=== PATIENT | male | born 1955 | race Caucasian/White ===

== ENCOUNTER 2017-08-23 15:48 | Emergency (ER) | payer BC, OTHER, SELFPAY | END 2017-08-23 19:10 | disposition home or self-care (01) | PROVIDERS: Emergency Provider Emergency Medicine; Family Provider Internal Medicine; Visit Provider Emergency Medicine | DX: M50.13 Cervical disc disorder with radiculopathy, cervicothoracic region (principal); Z87.891 Personal history of nicotine dependence | CPT/HCPCS: 71020; 72050; 73030; 80053; 82550; 82553; 84484; 85025; 93005; 93041; 99284 ==

== ENCOUNTER → 2018-01-31 09:29 | Outpatient (CLI) | payer BC, OTHER, SELFPAY | PROVIDERS: PCP Internal Medicine; Visit Provider Nurse Practitioner Family | DX: Z02.4 Encounter for examination for driving license (principal) ==

== ENCOUNTER → 2018-02-19 15:14 | Outpatient (POV) | payer BC, OTHER, SELFPAY ==
[2018-02-19 15:36] VITALS: BP 146/94; PULSE 70; RESP 18; O2SAT 96
--- NOTE | 2018-02-19 15:56 | HMH.PMCON ---
Assessment and Plan (1) Cervical pain (neck) Current visit: Yes Status: Chronic Category: Medical Code(s): M54.2 - Cervicalgia - Assessment and plan all Dx Assessment and Plan for all problems:: We will schedule a cervical MRI to discern pathology. Patient will return after his MRI and we will result. This time we will be able to make a plan of care. This note was dictated using voice recognition software and may contain errors or omissions HPI - Data of Consult Consult date: 02/19/18 Requesting Physician: Consuelo Barnes APRN Primary Care Provider: Wilbur Davalos Family Provider: Wilbur Davalos - Consult Narrative Reason for consult: Neck pain History of present illness: Mr. Maki is a 63 year old male presents today in regards to his neck pain. Patient states that about 3 months ago he began experiencing an intermittent pain that shoots from the lower part of his neck up onto the top of his head midline of the spine. Patient rates his pain a 1 out of 10 today. He states that is not too bad at this point. Patient has had no new onset of weakness or numbness and tingling in his extremities. Patient's pupillary responses are good. Patient states he has had no additional headaches that he can recall. Patient has not had any kind of imaging done on his neck. I believe this would be beneficial. Patient would like to determine the pathology of his pain. Patient states that positioning and lidocaine decreases pain will all movement and activity make it worse. Patient is trying to do home stretching exercises. CC: Consuelo Barnes APRN [facility] History I have reviewed the patient's past medical history: Yes Medical History: Reports:: Cancer (renal) Denies:: Diabetes Mellitus Type 1, Diabetes Mellitus Type 2, MRSA Other Surgeries: Yes: Cholecystectomy, Hernia Repair, Other (rib resection, nephrectomy) Amputation: No Fractures: No - *Social History Alcohol Intake: never Occupational Status: employed Household Members: spouse - Psychiatric History Expresses thoughts of harming self/others: None Suicide Plan Description: No Plan Review of Systems - Review of Systems ROS General: no recent weight change, no fever, no sleep disturbances Respiratory: no cough, no shortness of air, no recurring pulmonary infections Cardiovascular/Peripheral Vascular: No chest pain, No palpitations, no edema, no shortness of breath. Gastrointestinal: no incontinence, normal bowel movements reported Genitourinary: no incontinence Musculoskeletal: Neck shayy Psychiatric: normal mood/ affect Neurological: [denies weakness in extremities], [denies balance issues] Meds Home Medications Medication Instructions Recorded Confirmed Type Diclofenac Sodium [Diclofenac Sod 100 gm TP QID 02/19/18 02/19/18 History 100gm Topical Gel] Lidocaine [Lidocaine 5% ointment 1 gm TOPICAL QIDP PRN 02/19/18 02/19/18 History 35gm tube] Allergies Allergy/AdvReac Type Severity Reaction Status Date / Time No Known Allergies Allergy Verified 02/19/18 15:41 Objective Vital signs: Pulse Resp BP Pulse Ox 70 18 146/94 96 02/19/18 15:36 02/19/18 15:36 02/19/18 15:36 02/19/18 15:36 Narrative: Physical Exam General: Alert and oriented x3, no acute distress, pleasant and cooperative, [on room air] Lungs: Resps E/U, Symmetrical chest expansion, Eyes: PERRL Musculoskeletal: Flexion and extension of cervical spine somewhat guarded secondary to pain, deep tendon reflexes normal, strength in upper and lower extremities [5/5], normal gait noted Neurological: speech clear, right of way buyer equal, no gross sensory deficits Opioid Risk Tool - Opioid Risk Tool-Male Family hx alcohol abuse: Y Family hx illegal drugs: N Family hx rx drug abuse: N Personal hx alcohol abuse: N Personal hx illegal drugs: N Personal hx rx drug abuse: N Age: 45+ Hx of sexual abuse: N Mental health issues-
--- NOTE | 2018-02-19 15:59 | P.CONS_ITS ---
Assessment and Plan (1) Cervical pain (neck) Current visit: Yes Status: Chronic Category: Medical Code(s): M54.2 - Cervicalgia - Assessment and plan all Dx Assessment and Plan for all problems:: We will schedule a cervical MRI to discern pathology. Patient will return after his MRI and we will result. This time we will be able to make a plan of care. This note was dictated using voice recognition software and may contain errors or omissions HPI - Data of Consult Consult date: 02/19/18 Requesting Physician: Consuelo Barnes APRN Primary Care Provider: Wilbur Davalos Family Provider: Wilbur Davalos - Consult Narrative Reason for consult: Neck pain History of present illness: Mr. Maki is a 63 year old male presents today in regards to his neck pain. Patient states that about 3 months ago he began experiencing an intermittent pain that shoots from the lower part of his neck up onto the top of his head midline of the spine. Patient rates his pain a 1 out of 10 today. He states that is not too bad at this point. Patient has had no new onset of weakness or numbness and tingling in his extremities. Patient's pupillary responses are good. Patient states he has had no additional headaches that he can recall. Patient has not had any kind of imaging done on his neck. I believe this would be beneficial. Patient would like to determine the pathology of his pain. Patient states that positioning and lidocaine decreases pain will all movement and activity make it worse. Patient is trying to do home stretching exercises. CC: Consuelo Barnes APRN [facility] History I have reviewed the patient's past medical history: Yes Medical History: Reports:: Cancer (renal) Denies:: Diabetes Mellitus Type 1, Diabetes Mellitus Type 2, MRSA Other Surgeries: Yes: Cholecystectomy, Hernia Repair, Other (rib resection, nephrectomy) Amputation: No Fractures: No - *Social History Alcohol Intake: never Occupational Status: employed Household Members: spouse - Psychiatric History Expresses thoughts of harming self/others: None Suicide Plan Description: No Plan Review of Systems - Review of Systems ROS General: no recent weight change, no fever, no sleep disturbances Respiratory: no cough, no shortness of air, no recurring pulmonary infections Cardiovascular/Peripheral Vascular: No chest pain, No palpitations, no edema, no shortness of breath. Gastrointestinal: no incontinence, normal bowel movements reported Genitourinary: no incontinence Musculoskeletal: Neck shayy Psychiatric: normal mood/ affect Neurological: [denies weakness in extremities], [denies balance issues] Meds Home Medications Medication Instructions Recorded Confirmed Type Diclofenac Sodium [Diclofenac Sod 100 gm TP QID 02/19/18 02/19/18 History 100gm Topical Gel] Lidocaine [Lidocaine 5% ointment 1 gm TOPICAL QIDP PRN 02/19/18 02/19/18 History 35gm tube] Allergies Allergy/AdvReac Type Severity Reaction Status Date / Time No Known Allergies Allergy Verified 02/19/18 15:41 Objective Vital signs: Pulse Resp BP Pulse Ox 70 18 146/94 96 02/19/18 15:36 02/19/18 15:36 02/19/18 15:36 02/19/18 15:36 Narrative: Physical Exam General: Alert and oriented x3, no acute distress, pleasant and cooperative, [ on room air] Lungs:
== END ==
PROVIDERS: Family Provider Internal Medicine; PCP Internal Medicine; Visit Provider Clinical Nurse Specialist Family Health
DX: M54.2 Cervicalgia (principal)
CPT/HCPCS: 99202

== ENCOUNTER → 2018-02-22 15:18 | Outpatient (CLI) | payer BC, OTHER, SELFPAY ==
--- NOTE | 2018-02-22 15:28 | MR_ITS ---
MR cervical spine wo con, MR 3-d myelogram/MRCP Ordering Physician: Francisco J Adam MD Patient Age: 63 years: Male HISTORY: ITS.REASON: NECK PAIN Neck pain 6 months, burning sensation from top of cervical spine extends up to the head. TECHNIQUE Sagittal STIR, T1, T2, axial T1 and T2. On 1.5T Siemens wide bore MRI. 3-D MR myelogram image set obtained & performed on MRI workstation. Additional sagittal thin section T2 weighted dataset obtained from this latter acquisition as well (---76 CPT) COMPARISON previous MRI C-spine from 2014. Also plain films 08/23/2017 FINDINGS . patient apparently has sleep apnea and apparently which yielded some motion during the exam; and thus the images do demonstrate some motion artifact which degrades image detail Cranial cervical junction appears normal. C2-C3: disc and cord normal C3/4. Degenerative disc space narrowing with some reactive endplate changes posteriorly. Subtle progressive degenerative listhesis seen at this level since 2014. Slight additional posterior ridging from C4. The disc/osteophyte features most evident at midline and slightly to the right, features do indent & flatten the anterior cervical cord & yield mild spinal stenosis at this level midline & slightly to the right.. Cervical canal 9 mm AP suggesting mild spinal stenosis. C4/5. Mild diffuse disc osteophyte features with slight additional central disc protrusion which appears to have developed since 2014. Disc osteophyte features abuts the cervical cord just midline & just to the left... Mild facet hypertrophy bilaterally. borderline/mild spinal stenosis with 9.5 mm AP dimension spinal canal. C5-C6. Mild disc space narrowing. Mild uncovertebral joint hypertrophy to the right slightly indents thecal sac right paracentral C6/7 broad-based disc/osteophyte features slightly indents anterior thecal sac midline and continuing to the left . C7/T1 1 small central disc protrusion only slightly indents thecal sac. T1/2 disc unremarkable. T2/3. Disc intact. T3/4. Only Partially imaged with today sagittal views but there very large large disc protrusion or feature here which indents the thecal sac anteriorly and requires further evaluation with a MRI T-spine. 3-D MRI myelogram image set shows the narrowing of thecal sac canal most evident at C3/4 level & less pronounced at C4/5. Facet hypertrophy most evident to the left. C4/5, followed by facet hypertrophy to the left at C 3/4 & C2/3 IMPRESSION. T3/4.*Only Partially imaged with today sagittal cervical spine images,-but. Very large disc herniation/extrusion here which markedly indents the thecal sac noted at T3/4 level,-. Warrants further evaluation with follow-up MRI T-spine There is some motion artifact which degrades resolution on today's study. . Moderate Cervical spondylosis again noted. Findings are similar to previous 2015 exam with only slight progression. .Mild spinal stenosis at this C3/4 & C4/5 . Individual levels briefly detailed below: At C3/4 slight additional degenerative listhesis with slight additional disc/ osteophyte features , which slightly which indenting the cervical cord at midline. Mild spinal stenosis C4/5 with spondylosis, disc/osteophyte features slightly more midline & to the left where they may may very slightly flatten the cord. . Borderline/mild spinal stenosis C6/7 broad-based disc/osteophytes features slight indent the thecal sac midline & to the left
== END ==
PROVIDERS: Family Provider Internal Medicine; PCP Internal Medicine; Visit Provider Anesthesiology
DX: M54.2 Cervicalgia (principal)
CPT/HCPCS: 72141; 76376

== ENCOUNTER → 2018-02-23 16:03 | Outpatient (CLI) | payer BC, OTHER, SELFPAY ==
--- NOTE | 2018-02-23 16:08 | XR_ITS ---
XR finger RT min 2V Ordering Physician: Wilbur Davalos Patient Age: 63 years: Male HISTORY: ITS.REASON: PAIN/SWELLING RT. THUMB AT MCP JOINT Pain and swelling right thumb at MCP joint TECHNIQUE: 3 views right thumb COMPARISON : None relevant FINDINGS Moderately pronounced degenerative arthritic changes at the first carpal-metacarpal joint. Narrowing, sclerosis subchondral cystic changes about this joint along with some mild hypertrophic features about its margins, particularly here at the ulnar/dorsal aspect of the trapezium . Less pronounced arthritic changes also seen at first MCP joint. Joint space narrowing minor sclerosis and possibly some minor subchondral cystic features at head of first metacarpal. Slight narrowing at the IP joint of thumb with slight sharpening the joint margins. . IMPRESSION Most evident and pronounced arthritic changes at first carpal metacarpal joint. Less pronounced pronounced arthritic features at first MCP joint. No fracture or acute findings otherwise
== END ==
PROVIDERS: PCP Internal Medicine; Visit Provider Internal Medicine
DX: M79.644 Pain in right finger(s) (principal)
CPT/HCPCS: 73140

== ENCOUNTER → 2018-03-05 15:13 | Outpatient (POV) | payer BC, OTHER, SELFPAY ==
[2018-03-05 15:29] VITALS: BP 149/99; PULSE 87; RESP 18; O2SAT 97; BMI 29.9
--- NOTE | 2018-03-06 08:39 | HMH.PAINSOAP ---
[facility] Pain Management SOAP Note Subjective:: Patient is a pleasant 63-year-old white male who presents today for follow-up after recent cervical MRI. Patient does have cervical degeneration along with spondylosis. He also has disc bulge as well. Patient states that his pain is about a 2 out of 10 today. Patient states it does get worse at times. He states his pain is midline and radiates up into his head. She is continuing to work. Patient had no new onset of weakness or numbness and tingling in the extremities. Patient would like to try a cervical epidural to see if this alleviates his pain comes. Note patient does have some thoracic pathology as well. Patient would like to focus on his neck pain at this time. ROS General: no recent weight change, no fever, no sleep disturbances Respiratory: no cough, no shortness of air, no recurring pulmonary infections Cardiovascular/Peripheral Vascular: No chest pain, No palpitations, no edema, no shortness of breath. Gastrointestinal: no incontinence, normal bowel movements reported Genitourinary: no incontinence Musculoskeletal: Neck pain Psychiatric: normal mood/ affect, Neurological: [denies weakness in extremities], [denies balance issues] Objective:: Physical Exam General: Alert and oriented x3, no acute distress, pleasant and cooperative, [on room air] Lungs: Resps E/U, Symmetrical chest expansion, Eyes: PERRL Musculoskeletal: Flexion and extension of cervical spine somewhat guarded secondary to pain, deep tendon reflexes normal, strength in upper and lower extremities [5/5], normal gait noted Neurological: speech clear, claims agent right of way equal, no gross sensory deficits Assessment:: Degenerative disc disease of the cervical spine Plan:: We will schedule C5-C6 cervical epidural steroid injection. We will see if that helps alleviate the patient's pain. I will follow-up with the patient after his injection. Patient's tried and failed stretching therapies along with medications and anti-inflammatories. Patient is not on any anticoagulation therapy. This note was dictated using voice recognition software and may contain errors or omissions
--- NOTE | 2018-03-06 08:42 | P.CONS_ITS ---
[facility] Pain Management SOAP Note Subjective:: Patient is a pleasant 63-year-old white male who presents today for follow-up after recent cervical MRI. Patient does have cervical degeneration along with spondylosis. He also has disc bulge as well. Patient states that his pain is about a 2 out of 10 today. Patient states it does get worse at times. He states his pain is midline and radiates up into his head. She is continuing to work. Patient had no new onset of weakness or numbness and tingling in the extremities. Patient would like to try a cervical epidural to see if this alleviates his pain comes. Note patient does have some thoracic pathology as well. Patient would like to focus on his neck pain at this time. ROS General: no recent weight change, no fever, no sleep disturbances Respiratory: no cough, no shortness of air, no recurring pulmonary infections Cardiovascular/Peripheral Vascular: No chest pain, No palpitations, no edema, no shortness of breath. Gastrointestinal: no incontinence, normal bowel movements reported Genitourinary: no incontinence Musculoskeletal: Neck pain Psychiatric: normal mood/ affect, Neurological: [denies weakness in extremities], [denies balance issues] Objective:: Physical Exam General: Alert and oriented x3, no acute distress, pleasant and cooperative, [ on room air] Lungs: Resps E/U, Symmetrical chest expansion, Eyes: PERRL Musculoskeletal: Flexion and extension of cervical spine somewhat guarded secondary to pain, deep tendon reflexes normal, strength in upper and lower extremities [5/5], normal gait noted Neurological: speech clear, muck miner equal, no gross sensory deficits Assessment:: Degenerative disc disease of the cervical spine Plan:: We will schedule C5-C6 cervical epidural steroid injection. We will see if that helps alleviate the patient's pain. I will follow-up with the patient after his injection. Patient's tried and failed stretching therapies along with medications and anti-inflammatories. Patient is not on any anticoagulation therapy. This note was dictated using voice recognition software and may contain errors or omissions
== END ==
PROVIDERS: Family Provider Internal Medicine; PCP Internal Medicine; Visit Provider Clinical Nurse Specialist Family Health
DX: M50.30 Other cervical disc degeneration, unspecified cervical region (principal)
CPT/HCPCS: 99212

== ENCOUNTER → 2018-04-23 09:37 | Outpatient (POV) | payer BC, OTHER, SELFPAY ==
[2018-04-23 09:52] VITALS: BP 167/93; PULSE 87; RESP 18; O2SAT 98; BMI 29.9
--- NOTE | 2018-04-23 10:03 | P.CONS_ITS ---
[facility] Pain Management SOAP Note Subjective:: Patient is a pleasant 63-year-old white male who we are treating for neck pain with cervical radicular symptoms. Patient status post one cervical epidural steroid injection at C5-C6. Patient's doing much better he rates his pain a 2 out of 10 today patient is unable to take anti-inflammatories due to his kidney. Patient states that the hot burning sensation is gone in his neck. He states that his pain does worsen when he is working. Patient's going to try Voltaren gel to see if this is beneficial. Patient has had been prescribed this previously. ROS General: no recent weight change, no fever, no sleep disturbances Respiratory: no cough, no shortness of air, no recurring pulmonary infections Cardiovascular/Peripheral Vascular: No chest pain, No palpitations, no edema, no shortness of breath. Gastrointestinal: no incontinence, normal bowel movements reported Genitourinary: no incontinence Musculoskeletal: Neck pain Psychiatric: normal mood/ affect Neurological: [denies weakness in extremities], [denies balance issues] Objective:: Physical Exam General: Alert and oriented x3, no acute distress, pleasant and cooperative, [ on room air] Lungs: Resps E/U, Symmetrical chest expansion, Eyes: PERRL Musculoskeletal: Flexion and extension of cervical spine somewhat guarded secondary to pain, deep tendon reflexes normal, strength in upper and lower extremities [5/5], normal gait noted Neurological: speech clear, carpet jack equal, no gross sensory deficits Assessment:: Degenerative disc disease of the cervical spinal cervical radiculopathy Plan:: Patient will follow up on an as-needed basis. Patient is uninterested in repeating this injection at this time due to his benefit at this point. Patient will give us a call if he is interested in moving forward with this in the future. Patient is going to try Voltaren gel to see if this is beneficial for his neck pain during work. This note was dictated using voice recognition software and may contain errors or omissions
== END ==
PROVIDERS: Family Provider Internal Medicine; PCP Internal Medicine; Visit Provider Clinical Nurse Specialist Family Health
DX: M50.10 Cervical disc disorder with radiculopathy, unspecified cervical region (principal); M54.13 Radiculopathy, cervicothoracic region
CPT/HCPCS: 99213

== ENCOUNTER → 2018-10-02 10:58 | Outpatient (CLI) | payer BC, OTHER, SELFPAY ==
--- NOTE | 2018-10-02 10:59 | CA_ITS ---
PROCEDURE: 2-D M-mode and color Doppler study INDICATIONS FOR THE TEST: Chest pain X COPD Heart Murmur Tobacco SmokingEX Palpitations Fatigue Syncope Edema Hypertension Diabetes Mellitus Rheumatic Fever SOB DOEXObesity Hyperlipidemia Family History HD PATIENT INFORMATION HEIGHT: 71 WEIGHT:224 GENDER: Male B/P:142/79 2-D/M-MODE INTERPRETATION: 2-D MEASUREMENTS OBSERVED VALUES IN CMS Right Ventricular Dimension (RVDd) 2.4 Interventricular Septum (Thickness)(IVsd) .9 Left Ventricular Internal Dimensions(LVIDd) 5.6 Left Ventricular Posterior Wall (Thickness)(LVPWd) .9 Aortic Root 3.7 Aortic Cusp Separation 1.8 Left Atrial Dimensions (LAD) 3.7 2D 1. Left Atrium is mildly enlarged, left ventricle is normal size, there is there is no concentric left ventricular hypertrophy, visually estimated ejection fraction 55% with no regional wall motion abnormality. 2. The right atrium and right ventricle are normal size and contractility. 3. The aortic valve is minimally thickened and fibrosed. 4. The mitral and tricuspid valve are grossly normal. 5. The pulmonic valve is poorly present. 6. No significant pericardial effusion noted. DOPPLER INTERROGATION: Doppler interrogation of the aortic, mitral and tricuspid valvular presence of mild mitral and tricuspid regurgitation, tricuspid regurgitation jet velocity is inadequate for calculation of the right ventricular systolic pressure, grade 1 diastolic dysfunction seen with tissue Doppler evidence of raised left atrial pressure. CONCLUSION: 1. Mildly enlarged left atrium, normal left ventricular size, preserved left ventricular systolic function, visually estimated ejection fraction 55% with no regional wall motion abnormality, grade 1 diastolic dysfunction seen with tissue Doppler evidence of raised left atrial pressure. 2. Mild mitral and tricuspid regurgitation 3. No significant pericardial effusion noted.
--- NOTE | 2018-10-02 11:27 | CT_ITS ---
CT heart w calcium score INDICATION: ITS.REASON: chest pain, dyspnea ORDERING PHYSICIAN: Nik Pandya MD PATIENT AGE: 63 years COMPARISON: None TECHNIQUE: Axial images are obtained without contrast. Sagittal and coronal reformatted images are reviewed as well. All CT scans at the facility use one or more dose reduction, viz: automated exposure control, ma/kV adjustment per patient size (including targeted exams where dose is matched to indication, i.e. head), or iterative reconstruction technique. FINDINGS: Coronary artery calcium score is 199 indicating moderate plaque burden with high cardiovascular disease risk. Images submitted demonstrates multiple hepatic cysts. There is a calcified granuloma in the right lung base. IMPRESSION: Coronary artery calcium score is 199 indicating moderate plaque burden with high cardiovascular disease risk
== END ==
PROVIDERS: PCP Internal Medicine; Visit Provider Internal Medicine Cardiovascular Disease
DX: R07.2 Precordial pain (principal); R06.09 Other forms of dyspnea; K21.9 Gastro-esophageal reflux disease without esophagitis; G47.33 Obstructive sleep apnea (adult) (pediatric); Z87.891 Personal history of nicotine dependence
CPT/HCPCS: 75571; 93017; 93306

== ENCOUNTER → 2018-10-09 08:16 | Outpatient (CLI) | payer BC, OTHER, SELFPAY ==
[2018-10-09 10:07] LABS: Alanine Aminotransferase 34 U/L (12-78); Albumin Level 3.8 gm/dL (3.4-5.0); Alkaline Phosphatase 93 U/L (46-116); Aspartate Amino Transferase 15 U/L (15-37); Bilirubin,Direct 0.2 mg/dL (0.0-0.2); Bilirubin,Indirect 0.5 mg/dL (0.0-0.9); Bilirubin,Total 0.7 mg/dL (0.2-1.0); Chol/HDL Ratio 3.2 (1-3.5); Cholesterol 126 mg/dL (140-200); HDL Cholesterol 39 mg/dL (27-67); LDL Cholesterol 61 mg/dL (0-130); Total Protein,Serum 6.8 gm/dL (6.4-8.2); Triglycerides 130 mg/dL (30-200); VLDL Cholesterol 26 mg/dL (0-40)
== END ==
PROVIDERS: Visit Provider Urology
DX: I20.9 Angina pectoris, unspecified (principal); K21.9 Gastro-esophageal reflux disease without esophagitis; R06.09 Other forms of dyspnea; R94.39 Abnormal result of other cardiovascular function study; G47.33 Obstructive sleep apnea (adult) (pediatric); Z87.891 Personal history of nicotine dependence
CPT/HCPCS: 36415; 80061; 80076

== ENCOUNTER → 2018-10-12 12:11 | Outpatient (CLI) | payer BC, OTHER, SELFPAY ==
[2018-10-12 12:22] LABS: Microscopic, Urine URINE MICROSCOPIC (MICROSCOPIC)
[2018-10-12 13:12] LABS: Appearance,Urine CLEAR (Clear); Bilirubin,Urine Negative (Negative); Blood, Urine Negative (Negative); Color,Urine YELLOW (Yellow); Glucose,Urine (UA) Negative (Negative); Ketones,Urine Negative (Negative); Leukocyte Esterase,Urine Negative (Negative); Nitrate,Urine Negative (Negative); PH,Urine 5.5 (5.0-8.5); Protein,Urine Negative (Negative); Urobilinogen,Urine 0.2 EU/dl (0.2)
[2018-10-12 13:23] LABS: Creatinine,Urine Random 104 mg/dL (20-320)
[2018-10-12 13:34] LABS: Bacteria,Urine Trace /lpf
[2018-10-12 13:57] LABS: Albumin Level 3.5 gm/dL (3.4-5.0); Anion Gap 15.2 mEq/L (5-15); Blood Urea Nitrogen 24 mg/dL (7-18); Calcium 8.5 mg/dL (8.5-10.1); Carbon Dioxide 23 mmol/L (21.0-32.0); Chloride 105 mmol/L (98-107); Creatinine,Serum 1.33 mg/dL (0.70-1.30); Estimated Glomerular Filt Rate 54 ml/min (>60); GFR (African American) 66 ML/MIN (>60); Glucose 86 mg/dL (74-106); Phosphorous 3.7 mg/dL (2.4-4.9); Potassium 4.2 mmoL/L (3.5-5.1); Sodium 139 mmol/L (136-145)
[2018-10-16 12:17] LABS: 1,25-Dihydroxy, Vitamin D-2 <10 pg/mL (.)
[2018-10-16 16:12] LABS: 1,25 Dihydroxy Vitamin D 37 pg/mL (.); 1,25-Dihydroxy, Vitamin D-3 35 pg/mL (.)
== END ==
PROVIDERS: Visit Provider Internal Medicine Nephrology
DX: N18.2 Chronic kidney disease, stage 2 (mild) (principal)
CPT/HCPCS: 36415; 80069; 81001; 82043; 82570; 82652

== ENCOUNTER → 2019-01-07 09:31 | Outpatient (CLI) | payer BC, OTHER, SELFPAY ==
--- NOTE | 2019-01-07 09:36 | CT_ITS ---
CT abdomen pelvis wo con CLINICAL INDICATION: Left lower abdominal pain ITS.REASON: LLQ PAIN, LT GROIN PAIN ORDERING PHYSICIAN: Wilbur Davalos PATIENT AGE: 63 years COMPARISON: 517 TECHNIQUE: Axial images obtained with sagittal and coronal reformats. All CT scans at the facility use one or more dose reduction, viz: automated exposure control, ma/kV adjustment per patient size (including targeted exams where dose is matched to indication, i.e. head), or iterative reconstruction technique. PROCEDURE: Oral Contrast: None IV Contrast: None . FINDINGS: Lower thorax: No acute finding There are numerous hepatic cysts as before. There is a small hiatal hernia. Postcholecystectomy change. Prior right nephrectomy. The spleen and left adrenal gland are unremarkable. Right adrenal gland not visualized and may be surgically absent. The pancreas have an unremarkable appearance. No intestinal obstruction or free air. No evidence of appendicitis or diverticulitis. No pelvic mass abnormal fluid collection or focal inflammatory change of the pelvis. No inguinal mass. There is some increased soft tissue density in the left canal which is stable compared to the previous exam. This is nonspecific. No acute bony findings. IMPRESSION: 1. Prior cholecystectomy and right nephrectomy. 2. Multiple hepatic cysts. 3. No acute finding
== END ==
PROVIDERS: PCP Internal Medicine; Visit Provider Internal Medicine
DX: R10.32 Left lower quadrant pain (principal)
CPT/HCPCS: 74176

== ENCOUNTER → 2019-01-21 09:18 | Outpatient (CLI) | payer SELFPAY | PROVIDERS: Visit Provider Nurse Practitioner Family | DX: Z02.4 Encounter for examination for driving license (principal) ==

== ENCOUNTER → 2019-03-05 09:15 | Outpatient (POV) | payer SELFPAY | PROVIDERS: Visit Provider Dermatology | DX: Z00.00 Encounter for general adult medical examination without abnormal findings (principal) ==

== ENCOUNTER → 2019-04-19 11:19 | Outpatient (CLI) | payer BC, OTHER, SELFPAY ==
--- NOTE | 2019-04-19 11:27 | XR_ITS ---
PROCEDURE: XR LUMBAR SPINE MIN 4V CLINICAL INDICATION: LUMBAGO WITH LT SCIATICA COMPARISON: LS5 LUMBAR SPINE 5 VIEWS from 11/12/2014 FINDINGS: There is degenerative disc disease from L2 to L4. There is mild retrolisthesis of L3 on L4 of 6 mm. Degenerate disc disease L3-L4. No fracture or dislocation. No lytic or blastic change. Incidental vascular calcifications and right upper quadrant surgical clips. IMPRESSION: Degenerative changes, no acute finding Dictated by: Joselo Salazar MD 04/19/2019 12:13 Signed by: <Electronically signed by Joselo Salazar MD in [place]> 04/19/2019 12:13
== END ==
PROVIDERS: PCP Internal Medicine; Visit Provider Internal Medicine
DX: M54.42 Lumbago with sciatica, left side (principal)
CPT/HCPCS: 72110

== ENCOUNTER 2019-05-09 15:30 | Outpatient (RCR) | payer BC, OTHER, SELFPAY | END 2019-05-09 15:35 | disposition home or self-care (01) | LOC: PT 15:30 | PROVIDERS: PCP Internal Medicine; Visit Provider Internal Medicine | DX: M54.42 Lumbago with sciatica, left side (principal) | CPT/HCPCS: 97010; 97014; 97033; 97035; 97110; 97140; 97163; G0283 ==

== ENCOUNTER → 2020-02-03 15:48 | Outpatient (CLI) | payer BC, MEDICARE, OTHER, SELFPAY ==
--- NOTE | 2020-02-03 15:57 | XR_ITS ---
PROCEDURE: XR LUMBAR SPINE MIN 4V CLINICAL INDICATION: LOW BACK PAIN COMPARISON: XR LUMBAR SPINE MIN 4V from 04/19/2019 FINDINGS: There is degenerative disc disease from L1-S1 most severe at L3-L4 with 7 mm retrolisthesis of L3. No acute fracture or dislocation. There is straightening of the lumbar lordosis. No lytic or blastic change. There are surgical clips in the right paraspinal region at the thoracolumbar junction. Mild facet arthritic changes are present at L5-S1 and there is some sclerosis along the inferior aspect of the SI joints. IMPRESSION: Degenerative changes as described above Dictated by: Joselo Salazar MD 02/04/2020 07:21 Electronically signed by Joselo Salazar MD in [place] 02/04/2020 07:21
== END ==
PROVIDERS: PCP Internal Medicine; Visit Provider Internal Medicine
DX: M54.5 Low back pain (principal)
CPT/HCPCS: 72110

== ENCOUNTER 2020-03-11 15:30 | Outpatient (RCR) | payer BC, MEDICARE, OTHER, SELFPAY | END 2020-03-11 15:35 | disposition home or self-care (01) | LOC: PT 15:30 | PROVIDERS: PCP Internal Medicine; Visit Provider Internal Medicine | DX: M54.5 Low back pain (principal) | CPT/HCPCS: 97010; 97012; 97014; 97035; 97110; 97163; G0283 ==

== ENCOUNTER → 2020-04-13 14:07 | Outpatient (CLI) | payer BC, MEDICARE, OTHER, SELFPAY ==
--- NOTE | 2020-04-13 14:10 | MR_ITS ---
PROCEDURE: MR LUMBAR SPINE WO CON CLINICAL INDICATION: LOW BACK PAIN LBP worse on LT side. Intermittent LT leg pain, numbness, and tingling. [id number]. NO TRAUMA. PRIOR X-RAY 02-03-20 COMPARISON: MR SPCERVWO MR cervical spine wo con from 02/22/2018 CR XR LUMBAR SPINE MIN 4V from 02/03/2020 TECHNIQUE: Standard multiplanar multiecho sequences are performed without contrast. 3-D MIP and myelographic images are also rendered and reviewed FINDINGS: There is normal alignment. There is a low lying cauda equina with a spinal cord ending at the L2-L3 level. The filum terminalis slightly thickened distally. L1-L2: There is a small central disc herniation with superior extrusion of the disc by approximately 16 mm. No impingement is evident. Mild degenerative disc disease is present at that level. Small lipoma or hemangioma at L1. L2-L3: Minimal bulging disc with mild facet and ligamentum hypertrophy. L3-L4: Minimal retrolisthesis of L3 of approximately 4 mm. Mild bulging disc with facet and ligamentum hypertrophy. There is mild foraminal narrowing on the right. L4-5: Minimal bulging disc with mild facet and ligamentum hypertrophy L5-S1: Degenerative disc disease with bulging disc with mild facet and ligamentum hypertrophy. There is mild left-sided foraminal narrowing at this level. IMPRESSION: 1. Low lying cauda equina at the L2-L3 level with a mildly thickened filum terminale 2. Small central disc herniation at L1-L2 with superior extrusion without impingement 3. Multilevel lumbar spondylosis with bulging disc and facet and ligamentum hypertrophy and degenerative disc disease. Please see above for detailed description Dictated b Joselo Salazar MD 04/15/2020 16:29 Joselo Salazar MD in [place] 04/15/2020 16:29
== END ==
PROVIDERS: PCP Internal Medicine; Visit Provider Internal Medicine
DX: M54.5 Low back pain (principal)
CPT/HCPCS: 72148; 76376

== ENCOUNTER → 2021-02-03 16:21 | Outpatient (CLI) | payer MEDICARE, OTHER, SELFPAY ==
[2021-02-03 17:02] LABS: Basophils # 0.1 K/mm3 (0-0.2); Basophils % 0.6 % (0.1-2.0); Eosinophils # 0.4 K/mm3 (0.0-0.4); Eosinophils % 3.7 % (0.1-12.0); Hematocrit 43.1 % (42.0-52.0); Hemoglobin 14.8 g/dL (14.1-18.0); Lymphocytes # 2.5 K/mm3 (0.7-4.5); Lymphocytes % 25.1 % (10-50); Mean Corpuscular HGB Conc 34.4 g/dL (31.8-35.4); Mean Corpuscular Hemoglobin 31.2 pg (27.0-31.2); Mean Corpuscular Volume 90.9 fl (80-94); Mean Platelet Volume 7.5 fl (7.4-10.4); Monocytes # 0.6 K/mm3 (0.1-1.0); Monocytes % 5.8 % (1.7-9.3); Neutrophils # 6.4 K/mm3 (1.8-7.8); Neutrophils % 64.8 % (37.0-80.0); Platelet Count 323 K/mm3 (142-424); Red Blood Count 4.74 M/mm3 (4.60-6.20); Red Cell Distribution Width 12.9 % (11.5-17.5); White Blood Count 9.9 K/mm3 (4.8-10.8)
[2021-02-03 18:30] LABS: Alanine Aminotransferase 26 U/L (12-78); Albumin Level 4.3 g/dl (3.5-5.0); Albumin/Globulin Ratio 1.7 (1.1-1.8); Alkaline Phosphatase 103 U/L (38-126); Aspartate Amino Transferase 30 U/L (17-59); Bilirubin,Total 0.5 mg/dl (0.2-1.3); Blood Urea Nitrogen 15 mg/dl (9-20); Carbon Dioxide 20 mmol/L (22.0-30.0); Chloride 107 mmol/L (98-107); Estimated Glomerular Filt Rate 67 ml/min (>60); GFR (African American) 81 ML/MIN (>60); Globulin 2.6 g/dL (1.3-3.2); Glucose 110 mg/dl (74-100); Sodium 138 mmol/L (136-145); Total Protein,Serum 6.9 g/dl (6.3-8.2)
== END ==
PROVIDERS: Visit Provider Internal Medicine
DX: I10 Essential (primary) hypertension (principal); L60.2 Onychogryphosis
CPT/HCPCS: 80053; 85025

== ENCOUNTER → 2021-03-23 15:46 | Outpatient (CLI) | payer MEDICARE, OTHER, SELFPAY ==
[2021-03-23 15:54] LABS: Basophils # 0.1 K/mm3 (0-0.2); Basophils % 0.9 % (0.1-2.0); Eosinophils # 0.3 K/mm3 (0.0-0.4); Eosinophils % 2.9 % (0.1-12.0); Hematocrit 43.6 % (42.0-52.0); Hemoglobin 14.8 g/dL (14.1-18.0); Lymphocytes # 2.6 K/mm3 (0.7-4.5); Lymphocytes % 28.3 % (10-50); Mean Corpuscular Hemoglobin 30.7 pg (27.0-31.2); Mean Corpuscular Volume 90.2 fl (80-94); Mean Platelet Volume 7.2 fl (7.4-10.4); Monocytes # 0.4 K/mm3 (0.1-1.0); Monocytes % 4.7 % (1.7-9.3); Neutrophils # 5.7 K/mm3 (1.8-7.8); Neutrophils % 63.2 % (37.0-80.0); Platelet Count 280 K/mm3 (142-424); Red Blood Count 4.83 M/mm3 (4.60-6.20); Red Cell Distribution Width 13.1 % (11.5-17.5); White Blood Count 9.1 K/mm3 (4.8-10.8)
[2021-03-23 16:14] LABS: Alanine Aminotransferase 35 U/L (12-78)
== END ==
PROVIDERS: Visit Provider Internal Medicine
DX: L60.2 Onychogryphosis (principal); Z79.899 Other long term (current) drug therapy
CPT/HCPCS: 84460; 85025

== ENCOUNTER 2021-05-29 14:49 | Emergency (ER) | payer MEDICARE, OTHER, SELFPAY ==
[2021-05-29 15:30] VITALS: BP 119/81; PULSE 81; RESP 20; TEMP 37.6; O2SAT 98; BMI 32.2
--- NOTE | 2021-05-29 15:52 | HMH.EDUTC ---
[facility] [place] Disposition Clinical Impression: Sinusitis Disposition: Home, Self-Care Condition on Discharge: Good Instructions: DI for Sinusitis Additional Instructions: You have been tested for COVID19. Please isolate yourself as if you are positive until test results received. Prescriptions: Amoxicillin/Potassium Clav [Augmentin 875-125 Tablet] 1 tab PO Q12H 10 Days #20 tab Transmission Status: Pending to [facility] Fluticasone Propionate [Flonase 50mcg nasal spray 16gm] 1 spr NS DAILY 30 Days #1 ml Transmission Status: Pending to [facility] predniSONE [Prednisone 20mg Tab] 20 mg PO BID 5 Days #10 tab Transmission Status: Pending to [facility] Referrals: Wilbur Davalos [Primary Care Provider] - Time of Disposition: 16:02 Medical Decision Making - Felipe Inquiry Pt receiving controlled substance: No Vital Signs: 05/29/21 15:30 Temperature 99.6 F Temperature Source Oral Pulse Rate [Right Brachial] 81 Respiratory Rate 20 Blood Pressure [Right Arm] 119/81 Blood Pressure Mean [Right Arm] 93 Blood Pressure Source [Right Arm] Automatic Cuff Blood Pressure Position [Right Arm] Sitting 02 Sat by Pulse Oximetry 98 Oxygen Delivery Method Room Air [facility] [place] HPI - General Stated complaint: cough, SOA, congestion Time Seen by Provider: 05/29/21 15:52 Mode of Arrival: Ambulatory Source of Information: Patient Limitations: No Limitations Description of Symptoms (Recalled from Triage Doc. by RN): PATIENT C/O SINUS DRAINAGE (X 1 WEEK), COUGH, BODY ACHES, AND FEVER HEENT Symptoms (Recalled from RN notes): Yes Resp Symptoms (Recalled from RN notes): Yes Skin Symptoms (Recalled from RN notes): No MS Symptoms (Recalled from RN notes): No Functional Status (Recalled from RN notes): WNL - History of Present Illness Provider Complaint: Patient has had crackling in right ear and sinus drainage X 1 week. Last night started having body aches, chest tightness, chills. Possible fever. Has had loose stools. No vomiting. No loss of taste or smell. No known exposures to COVID19. He has been vacccinated. Onset (ago): day(s) (1) Relieving factors: none Exacerbating factors: none Associated symptoms: fever/chills, malaise Treatments prior to arrival: none - Related Data Home Medications Medication Instructions Recorded Confirmed Esomeprazole Magnesium [Nexium] 20 mg PO DAILY 09/26/18 07/31/20 Previous Rx's Medication Instructions Recorded atorvastatin 10 mg tablet 10 mg PO DAILY #90 tab 12/03/18 bisoprolol fumarate 5 mg tablet 2.5 mg PO DAILY #30 tab 04/30/19 Amoxicillin/Potassium Clav 1 tab PO Q12H 10 Days #20 tab 05/29/21 [Augmentin 875-125 Tablet] Fluticasone Propionate [Flonase 1 spr NS DAILY 30 Days #1 ml 05/29/21 50mcg nasal spray 16gm] predniSONE [Prednisone 20mg 20 mg PO BID 5 Days #10 tab 05/29/21 Tab] Allergies Allergy/AdvReac Type Severity Reaction Status Date / Time Iodinated Contrast Media AdvReac Severe Verified 07/31/20 15:29 [Iodinated Contrast Media - Oral and] Gadolinium-Containing AdvReac Intermediate Verified 07/31/20 15:29 Contrast Medi - Worker's Comp Is this a Worker's Comp case?: No [facility] History - Hepatitis A Screen Drug use history?: No High risk sexual behaviors?: No History of sexually transmitted infection?: No Currently employed?: No Childcare worker?: No Do you have indoor plumbing?: Yes Do you have electricity?: Yes Attestation statement:: This patient has been screened for Hepatitis A risk factors. I have reviewed the patient's past medical history: Yes Medical History: Reports:: Cancer, Gastroesophageal Reflux Disease(GERD), Hyperlipidemia, Hypertension, Renal Disease Denies:: Diabetes Mellitus Type 1, Diabetes Mellitus Type 2, Internal Pacemaker, Lung Disease, MRSA, Seizures Other Medical History: Denies: Blood Transfusion Reaction Laterality Cases: Left: Arthroscopy Knee, Bilateral: Tonsillectomy [facility] [place]
[2021-05-29 16:02] VITALS: BP 119/81; PULSE 81; RESP 20; TEMP 37.6; O2SAT 98
== END 2021-05-29 16:09 | disposition home or self-care (01) ==
PROVIDERS: Emergency Provider Physician Assistant; PCP Internal Medicine
DX: J01.90 Acute sinusitis, unspecified (principal); U07.1 COVID-19; K21.9 Gastro-esophageal reflux disease without esophagitis; E78.5 Hyperlipidemia, unspecified; I10 Essential (primary) hypertension; Z87.891 Personal history of nicotine dependence
CPT/HCPCS: 99202; C9803; G0463; U0003; U0005

== ENCOUNTER 2021-06-07 12:12 | Emergency (ER) | payer MEDICARE, OTHER, SELFPAY ==
[2021-06-07] VITALS (14 sets, daily range): BP systolic 112–137; BP diastolic 63–79; PULSE 72–90; RESP 16–20; TEMP 37.3; O2SAT 92–97; BMI 32.1
--- NOTE | 2021-06-07 12:18 | XR_ITS ---
PROCEDURE: XR CHEST PORTABLE CLINICAL HISTORY: sob COMPARISON: CR CXR CHEST(2 VIEWS-NOT PORTABLE) from 08/23/2017 CR CXR2V XR chest 2V from 09/26/2018 FINDINGS: The cardiomediastinal silhouette and pulmonary vascularity are within normal limits. Patchy infiltrate is present in the mid and lower lung zones bilaterally. Findings are consistent with Covid19 pneumonia. There may be a small left effusion. No acute bony abnormalities. IMPRESSION: Bilateral pneumonia Dictated by: Joselo Salazar MD 06/07/2021 13:42 Joeslo Salazar MD in [place] 06/07/2021 13:42
[2021-06-07 12:48] LABS: Chloride 104 mmol/L (98-107)
[2021-06-07 12:49] LABS: Basophils # 0.2 K/mm3 (0-0.2); Basophils % 1.5 % (0.1-2.0); Eosinophils # 0.1 K/mm3 (0.0-0.4); Eosinophils % 1.1 % (0.1-12.0); Hematocrit 46.7 % (42.0-52.0); Hemoglobin 15.6 g/dL (14.1-18.0); Lymphocytes # 1.9 K/mm3 (0.7-4.5); Lymphocytes % 15.5 % (10-50); Mean Corpuscular HGB Conc 33.4 g/dL (31.8-35.4); Mean Corpuscular Hemoglobin 31.4 pg (27.0-31.2); Mean Corpuscular Volume 93.8 fl (80-94); Mean Platelet Volume 7.3 fl (7.4-10.4); Monocytes # 0.9 K/mm3 (0.1-1.0); Neutrophils # 9.1 K/mm3 (1.8-7.8); Neutrophils % 74.8 % (37.0-80.0); Platelet Count 417 K/mm3 (142-424); Potassium 3.6 mmoL/L (3.5-5.1); Red Blood Count 4.98 M/mm3 (4.60-6.20); Red Cell Distribution Width 12.8 % (11.5-17.5); Sodium 136 mmol/L (136-145); White Blood Count 12.1 K/mm3 (4.8-10.8)
[2021-06-07 12:51] LABS: Alanine Aminotransferase 45 U/L (12-78); Alkaline Phosphatase 72 U/L (38-126); Aspartate Amino Transferase 31 U/L (17-59); Bilirubin,Total 0.6 mg/dl (0.2-1.3); Blood Urea Nitrogen 13 mg/dl (9-20); Creatinine Clearance Estimated 107 mL/min (50-200); Estimated Glomerular Filt Rate 84 ml/min (>60); GFR (African American) 102 ML/MIN (>60)
[2021-06-07 12:52] LABS: Albumin Level 3.5 g/dl (3.5-5.0); Albumin/Globulin Ratio 1.1 (1.1-1.8); Anion Gap 11.6 mEq/L (5-15); Calcium 8.7 mg/dl (8.4-10.2); Carbon Dioxide 24 mmol/L (22.0-30.0); Globulin 3.3 g/dL (1.3-3.2); Glucose 112 mg/dl (74-100); Total Protein,Serum 6.8 g/dl (6.3-8.2)
[2021-06-07 15:15] LABS: Microscopic, Urine URINE MICROSCOPIC (MICROSCOPIC)
[2021-06-07 15:16] LABS: Appearance,Urine SL CLOUDY (Clear); Bilirubin,Urine Negative (Negative); Blood, Urine Negative (Negative); Color,Urine YELLOW (Yellow); Glucose,Urine (UA) Negative (Negative); Ketones,Urine Negative (Negative); Leukocyte Esterase,Urine Negative (Negative); Nitrate,Urine Negative (Negative); Protein,Urine Negative (Negative); Specific Gravity, Urine 1.025 (1.005-1.030); Urobilinogen,Urine 0.2 EU/dl (0.2)
[2021-06-07 15:27] LABS: Bacteria,Urine Trace /lpf
--- NOTE | 2021-06-07 16:44 | HMH.EDGENADL ---
ED Disposition Clinical Impression: Pneumonia due to COVID-19 virus, COVID-19 Disposition: Home, Self-Care Condition on Discharge: Fair Additional Instructions: Return the emergency department for worsening shortness of breath, chest pain. Stay well-hydrated. Follow-up with your PCP tomorrow. Referrals: Wilbur Davalos [Primary Care Provider] - (tomorrow) Time of Disposition: 16:48 - Critical Care Critical Care Time: No Attestation: On 06/07/21, the high probability of a clinically significant, sudden or life threatening deterioration of the following system(s) required my full and direct attention, intervention and personal management. The time I documented below is in addition to time spent performing reported procedures but includes the following listed in this critical care notation. Medical Decision Making - Medical Records Medical records reviewed: Yes: I reviewed the patient's medical records. - Felipe Inquiry Pt receiving controlled substance: No Vital Signs: 06/07/21 12:13 06/07/21 12:30 06/07/21 13:00 Temperature 99.1 F Temperature Source Oral Pulse Rate 78 80 Pulse Rate [Right Radial] 82 Respiratory Rate 16 Blood Pressure 124/74 121/75 Blood Pressure [Right Arm] 128/74 Blood Pressure Mean 85 95 Blood Pressure Mean [Right Arm] 92 Blood Pressure Source [Right Arm] Automatic Cuff Blood Pressure Position [Right Arm] Sitting 02 Sat by Pulse Oximetry 92 L 94 L 94 L Oxygen Delivery Method Room Air 06/07/21 13:30 06/07/21 14:00 06/07/21 14:30 Temperature Temperature Source Pulse Rate 78 84 Pulse Rate [Right Radial] Respiratory Rate 16 16 16 Blood Pressure 112/77 112/63 120/69 Blood Pressure [Right Arm] Blood Pressure Mean 86 77 86 Blood Pressure Mean [Right Arm] Blood Pressure Source [Right Arm] Blood Pressure Position [Right Arm] 02 Sat by Pulse Oximetry 94 L Oxygen Delivery Method 06/07/21 15:00 Temperature Temperature Source Pulse Rate 81 Pulse Rate [Right Radial] Respiratory Rate 16 Blood Pressure 122/76 Blood Pressure [Right Arm] Blood Pressure Mean 84 Blood Pressure Mean [Right Arm] Blood Pressure Source [Right Arm] Blood Pressure Position [Right Arm] 02 Sat by Pulse Oximetry 94 L Oxygen Delivery Method - Lab Data Lab results reviewed: Yes: I reviewed the patient's lab results. Lab Results 06/07/21 12:25: WBC 12.1 H, RBC 4.98, Hgb 15.6, Hct 46.7, MCV 93.8, MCH 31.4 H, MCHC 33.4, RDW 12.8, Plt Count 417, MPV 7.3 L, Neut % (Auto) 74.8, Lymph % (Auto) 15.5, Hopkins % (Auto) 7.0, Eos % (Auto) 1.1, Baso % (Auto) 1.5, Neut # (Auto) 9.1 H, Lymph # (Auto) 1.9, Hopkins # (Auto) 0.9, Eos # (Auto) 0.1, Baso # (Auto) 0.2 06/07/21 12:25: Sodium 136, Potassium 3.6, Chloride 104, Carbon Dioxide 24, Anion Gap 11.6, BUN 13, Creatinine 0.90, Estimated Creat Clear 107, Estimated GFR 84, Est GFR ( Amer) 102, Glucose 112 H, Calcium 8.7, Total Bilirubin 0.6, AST 31, ALT 45, Alkaline Phosphatase 72, Total Protein 6.8, Albumin 3.5, Globulin 3.3 H, Albumin/Globulin Ratio 1.1 06/07/21 15:00: Urine Color Yellow, Urine Appearance Sl cloudy, Urine pH 6.0, Ur Specific Warren 1.025, Urine Protein Negative, Urine Glucose (UA) Negative, Urine Ketones Negative, Urine Blood Negative, Urine Nitrate Negative, Urine Bilirubin Negative, Urine Urobilinogen 0.2, Ur Leukocyte Esterase Negative, Urine RBC 3-5, Urine WBC 3-5, Ur Squamous Epith Cells 3-5, Urine Bacteria Trace Result diagrams: 06/07/21 12:25 06/07/21 12:25 Orders (Tests/Meds): ED MEDICATIONS Generic Name Dose Route Start Last Admin Trade Name Freq PRN Reason Stop Dose Admin Azithromycin 500 mg/ Sodium 250 mls @ 250 mls/hr 06/07/21 14:00 06/07/21 14:47 Chloride IV 06/21/21 13:59 250 mls/hr Q24H JUMANA Administration Ceftriaxone Sodium 1 gm/ 50 mls @ 100 mls/hr 06/07/21 14:00 06/07/21 14:07 Sodium Chloride IV 06/21/21 13:59 100 mls/hr Q24H JUMANA Administration Di
== END 2021-06-07 18:10 | disposition home or self-care (01) ==
PROVIDERS: Emergency Provider Family Medicine; PCP Internal Medicine
DX: U07.1 COVID-19 (principal); J12.82 Pneumonia due to coronavirus disease 2019; K21.9 Gastro-esophageal reflux disease without esophagitis; I10 Essential (primary) hypertension; E78.5 Hyperlipidemia, unspecified; Z87.891 Personal history of nicotine dependence; Z79.899 Other long term (current) drug therapy
CPT/HCPCS: 71045; 80053; 81001; 85025; 96365; 96367; 96375; 99283; J0456

== ENCOUNTER → 2022-01-17 08:13 | Outpatient (CLI) | payer MEDICARE, OTHER, SELFPAY ==
[2022-01-17 09:49] LABS: Blood Urea Nitrogen 17 mg/dl (9-20); Estimated Glomerular Filt Rate 67 ml/min (>60); GFR (African American) 81 ML/MIN (>60)
== END ==
PROVIDERS: PCP Internal Medicine; Visit Provider Internal Medicine
DX: Z01.812 Encounter for preprocedural laboratory examination (principal)
CPT/HCPCS: 36415; 82565; 84520

== ENCOUNTER → 2022-01-18 13:31 | Outpatient (CLI) | payer MEDICARE, OTHER, SELFPAY | PROVIDERS: PCP Internal Medicine; Visit Provider Internal Medicine | DX: R06.09 Other forms of dyspnea (principal) ==

== ENCOUNTER → 2022-01-19 08:34 | Outpatient (CLI) | payer MEDICARE, OTHER, SELFPAY ==
--- NOTE | 2022-01-19 08:38 | CT_ITS ---
FINAL REPORT CLINICAL HISTORY: RT PLEURISY,SOA,H/O RENAL CA,COVID 19 PNEUMONIA COMPARISON: January 06, 2017 CT abdomen and pelvis FINDINGS: Thin section axial CT images of the chest were obtained with contrast. 3D reformatted images were also obtained. This study was performed with techniques to keep radiation doses as low as reasonably achievable (ALARA). Individualized dose reduction techniques using automated exposure control or adjustment of mA and/or kV according to the patient's size were employed. There is no evidence of pulmonary embolism. There is no evidence of thoracic aortic aneurysm or dissection. There is no evidence of mediastinal or hilar mass or adenopathy. There is no evidence of pulmonary mass or nodule. There is mild right lung base atelectasis or scarring. A calcified granuloma is seen in the right lung base. Limited images of the upper abdomen demonstrate postoperative change in the right lower thorax/upper abdomen where there is a hernia with a portion of the liver. Numerous hepatic cysts are again seen. There has been cholecystectomy. There is right nephrectomy. IMPRESSION: No evidence of pulmonary embolism. Mild right base atelectasis or scarring. Reviewed, Interpreted and Dictated by Willy Mar III, MD Transcribed by Hal Sanz Authenticated by Willy Mar III, MD on 01/19/2022 11:19:12 AM [facility]
--- NOTE | 2022-01-19 09:12 | HMH.ITSTN ---
Patient was rescheduled for today. He was pre-medicated for contrast allergy. Dr Davalos office gave patient dosing instruction. 12 hours/2hours/1 hour before scan. After injection I kept patient on table to make sure he did not have any allergic reaction due to contrast. Last time patient stated he only had hives. After 15 mins I removed IV and sent patient home. Patient stated he felt the same as he did when he came in. Told patient if he had shortness of breath to call ambulance and go to the ER.
== END ==
PROVIDERS: PCP Internal Medicine; Visit Provider Internal Medicine
DX: U09.9 Post COVID-19 condition, unspecified (principal); Z85.528 Personal history of other malignant neoplasm of kidney
CPT/HCPCS: 71275; Q9967

== ENCOUNTER → 2023-02-02 16:11 | Outpatient (CLI) | payer MEDICARE, OTHER, SELFPAY | PROVIDERS: PCP Internal Medicine; Visit Provider Specialist | DX: G47.33 Obstructive sleep apnea (adult) (pediatric) (principal); R06.83 Snoring | CPT/HCPCS: G0399 ==

== ENCOUNTER → 2023-05-11 08:28 | Outpatient (CLI) | payer MEDICARE, OTHER, SELFPAY ==
--- NOTE | 2023-05-11 08:29 | ECG_ITS ---
APPROVED REPORT Exam: Resting ECG HR:69 bpm ECG Measurements Heart Rate 69 AXES AZ 157 P 14 QRSd 97 QRS 87 QT 382 T 33 QTc 401 Conclusion SINUS RHYTHM BORDERLINE ECG UNCONFIRMED REPORT Electronically signed by : Masood Ramirez MD 05/11/2023 19:57:02
== END ==
PROVIDERS: PCP Internal Medicine; Visit Provider Specialist
DX: R07.9 Chest pain, unspecified (principal); I25.10 Atherosclerotic heart disease of native coronary artery without angina pectoris
CPT/HCPCS: 93005

== ENCOUNTER → 2023-05-29 13:56 | Outpatient (CLI) | payer MEDICARE, OTHER, SELFPAY | PROVIDERS: PCP Internal Medicine; Visit Provider Specialist | DX: G47.30 Sleep apnea, unspecified (principal); R06.83 Snoring | CPT/HCPCS: G0399 ==

== ENCOUNTER 2023-10-03 08:08 | Outpatient (CLI) | payer MEDICARE, OTHER, SELFPAY ==
[2023-10-03 08:54] LABS: Chol/HDL Ratio 3.1 (1-3.5); Cholesterol 117 mg/dl (140-200); HDL Cholesterol 38 mg/dl (40-60); Triglycerides 68 mg/dl (30-150); VLDL Cholesterol 14 mg/dL (0-40)
[2023-10-03 09:05] LABS: Direct LDL Cholesterol 58.28 mg/dL (100-129)
== END 2023-10-03 23:59 ==
LOC: LAB 08:10
PROVIDERS: PCP Internal Medicine; Visit Provider Internal Medicine Cardiovascular Disease
DX: E78.2 Mixed hyperlipidemia (principal)
CPT/HCPCS: 36415; 80061

== ENCOUNTER 2023-11-04 11:43 | Emergency (ER) | payer OTHER, SELFPAY ==
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
[2023-11-04 12:00] VITALS: BP 140/88; PULSE 90; RESP 19; TEMP 36.8; O2SAT 98; BMI 34.2
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
[2023-11-04 14:01] VITALS: BP 140/88; PULSE 90; RESP 19; TEMP 36.8; O2SAT 98
== END 2023-11-04 14:02 | disposition home or self-care (01) ==
PROVIDERS: Emergency Provider Nurse Practitioner Family; PCP Internal Medicine
DX: M54.2 Cervicalgia (principal); M25.562 Pain in left knee; V49.40XA Driver injured in collision with unspecified motor vehicles in traffic accident, initial encounter; Y92.410 Unspecified street and highway as the place of occurrence of the external cause; I11.9 Hypertensive heart disease without heart failure; I25.10 Atherosclerotic heart disease of native coronary artery without angina pectoris; E78.5 Hyperlipidemia, unspecified; K21.9 Gastro-esophageal reflux disease without esophagitis; Z87.891 Personal history of nicotine dependence
CPT/HCPCS: 72040; 73562; 99212; 99214; G0463

== ENCOUNTER 2024-12-18 14:48 | Outpatient (CLI) | payer MEDICARE, OTHER, SELFPAY ==
[2024-12-18 14:52] LABS: Basophils # 0.1 K/mm3 (0-0.2); Basophils % 0.6 % (0.1-2.0); Eosinophils # 0.2 K/mm3 (0.0-0.4); Eosinophils % 2.5 % (0.1-12.0); Hematocrit 46.1 % (42.0-52.0); Hemoglobin 15.7 g/dL (14.1-18.0); Lymphocytes # 2.2 K/mm3 (0.7-4.5); Lymphocytes % 22.9 % (10-50); Mean Corpuscular HGB Conc 34.1 g/dL (31.8-35.4); Mean Corpuscular Hemoglobin 30.8 pg (27.0-31.2); Mean Corpuscular Volume 90.6 fl (80-94); Mean Platelet Volume 8.9 fl (7.4-10.4); Monocytes # 0.6 K/mm3 (0.1-1.0); Monocytes % 6.6 % (1.7-9.3); Neutrophils # 6.5 K/mm3 (1.8-7.8); Neutrophils % 66.8 % (37.0-80.0); Nucleated Red Blood Cells # 0 10^3/uL; Nucleated Red Blood Cells % 0 %; Platelet Count 297 K/mm3 (142-424); Red Blood Count 5.09 M/mm3 (4.60-6.20); Red Cell Distribution Width 12.6 % (11.5-17.5); Red Cell Distribution Width-SD 41.6 fL; White Blood Count 9.8 K/mm3 (4.8-10.8)
[2024-12-18 16:53] LABS: Alanine Aminotransferase 23 U/L (12-78); Albumin Level 4.3 g/dl (3.5-5.0); Albumin/Globulin Ratio 1.4 (1.1-1.8); Alkaline Phosphatase 112 U/L (38-126); Aspartate Amino Transferase 26 U/L (17-59); Bilirubin,Total 0.7 mg/dl (0.2-1.3); Blood Urea Nitrogen 18 mg/dl (9-20); Carbon Dioxide 21 mmol/L (22.0-30.0); Chloride 104 mmol/L (98-107); Chol/HDL Ratio 2.6 (1-3.5); Cholesterol 114 mg/dl (140-200); Estimated Glomerular Filt Rate 55 ml/min (>60); GFR (African American) 66 ML/MIN (>60); Glucose 79 mg/dl (74-100); HDL Cholesterol 44 mg/dl (40-60); Sodium 138 mmol/L (136-145); Total Protein,Serum 7.3 g/dl (6.3-8.2); Triglycerides 102 mg/dl (30-150); VLDL Cholesterol 20 mg/dL (0-40)
[2024-12-18 17:05] LABS: Direct LDL Cholesterol 38.68 mg/dL (100-129)
[2024-12-18 17:22] LABS: Prostate Specific Ag Screen 1.1 ng/ml (0.0-4.0)
[2024-12-18 18:29] LABS: Anion Gap 17.2 mEq/L (5-15); Potassium 4.2 mmoL/L (3.5-5.1)
== END 2024-12-18 23:59 | disposition home or self-care (01) ==
LOC: LAB.DROPOF 14:49
PROVIDERS: PCP Internal Medicine; Visit Provider Internal Medicine
DX: Z12.5 Encounter for screening for malignant neoplasm of prostate (principal); I11.9 Hypertensive heart disease without heart failure; Z85.528 Personal history of other malignant neoplasm of kidney; E78.5 Hyperlipidemia, unspecified; K21.9 Gastro-esophageal reflux disease without esophagitis; I25.10 Atherosclerotic heart disease of native coronary artery without angina pectoris
CPT/HCPCS: 80053; 80061; 85025; G0103

== ENCOUNTER 2025-01-20 08:55 | Outpatient (CLI) | payer MEDICARE, OTHER, SELFPAY ==
[2025-01-20 20:35] LABS: Chol/HDL Ratio 3.9 (1-3.5); Cholesterol 147 mg/dl (140-200); HDL Cholesterol 38 mg/dl (40-60); Triglycerides 131 mg/dl (30-150); VLDL Cholesterol 26 mg/dL (0-40)
--- OUTSIDE RECORDS SUMMARY | 2025-01-20 22:27 | XMS_ITS | Continuity of Care Document ---
Author Name [facility] Organization [facility] Care Team Providers Care Regulatory Scientist Name Role Phone [facility] Unavailable Unavailable Problems Combined list of problems from Department of Defense and Veterans Affairs facilities. It does not include entries that were removed or entered in error. Problem Status Onset Date Problem Type Date of Resolution Comments Source Exposure to potentially hazardous substance Active Condition [facility] Diagnosis: ICD-10-CM Z77.29 Contact with and exposure to other hazardous substances Active Diagnosis [facility] Medications Combined list of outpatient medications from Department of [facility] and [facility] facilities.Medications provided include 1) outpatient medications from the last 15 months, and 2) patient-reported medications. Medication Details Route Status Patient Instructions Prescription Expires Prescription Number Last Dispense Date Ordering Provider Order Date Order Qty Source ATORVASTATI N CALCIUM (atorvastat in calcium), 10 MG, TABLET, ORAL, [facility]ENA [facility], 1000 ea. BOTTLE Active [id number] 2023 90 Pharmac y Data Transac tion Service Facilit y RANOLAZINE ER (ranolazine ), 500 MG, TAB ER 12H, ORAL, [employer], 60 ea. BOTTLE Cancele d [id number] : 2023 0 Pharmac y Data Transac tion Service Facilit y RANOLAZINE ER (ranolazine ), 500 MG, TAB ER 12H, ORAL, [employer], 60 ea. BOTTLE Cancele d [id number] : 2023 0 Pharmac y Data Transac tion Service Facilit y RANOLAZINE ER (ranolazine ), 500 MG, TAB ER 12H, ORAL, AVKARE, 60 ea. BOTTLE Cancele d [id number] : 2023 0 Pharmac y Data Transac tion Service Facilit y RANOLAZINE ER (ranolazine ), 500 MG, TAB ER 12H, ORAL, GLENMARK PHARMA, 60 ea. BOTTLE Cancele d [id number] : 2023 0 Pharmac y Data Transac tion Service Facilit y RANOLAZINE ER (ranolazine ), 500 MG, TAB ER 12H, ORAL, LIFESTAR PHARMA, 60 ea. BOTTLE Cancele d [id number] : 2023 0 Pharmac y Data Transac tion Service Facilit y RANOLAZINE ER (ranolazine ), 500 MG, TAB ER 12H, ORAL, [facility] PHA, 60 ea. BOTTLE Cancele d [id number] : 2023 0 Pharmac y Data Transac tion Service Facilit y RANOLAZINE ER (ranolazine ), 500 MG, TAB ER 12H, ORAL, [facility]A, 60 ea. BOTTLE Cancele d [id number] : 2023 0 Pharmac y Data Transac tion Service Facilit y Immunizations Combined list of available immunizations from the Department of Defense and Veterans Affairs facilities. Immunization Series Date Given Administered By Site Reaction Lot Number CVX Code Drug Sales Driver Status Comments Source COVID-19 vaccine, vector-nr, rS-Ad26, PF, 0.5 mL 2020 ЕЛЕНА, () Not Given COVID-19 vaccine, vector-nr , rS-Ad26, PF, 0.5 mL DoD Encounters Combined list of: 1) Encounters from Department of Veterans Affairs facilities going backup to the last 18 months, not all [place] inpatient encounters are included; 2) Encounters from the Department of Defense facilities going backup to 280 months. Location Location Details Encounter Type Encounter Number Reason For Visit Attending Provider ADM Date DC Date Status Disposition Source [facility] Outpatient Encounter [id number] 01/10 [place] [facility] Outpatient Encounter [id number] 01/10 [place] [facility] BRIEF COMUNICAJ TECH-BSD [facility] [id number] Diagnos is: ICD-10- CM Z77.29 Contact with and exposur e to other hazardo us substan oleksandr JATIN VELAZQUEZ [facility] Procedures Combined list of: 1) Procedures from Department of Veterans Affairs facilities going back up to thelast 18 months, not all [facility] non-surgical procedures are included; 2) All procedures from the Department of Defense facilities. Procedure Procedure Type Code Date Perfomer Comments Holly hale EXCISION OF PILONIDAL CYST O R SINUS 03/03/1993 [facility] OTHER UMBILICAL HERNIORRHAPHY 10/12/1992 DoD Social History Combined list of available smoking, tobacco, and other social history from Department of Defense and Veterans Affairs facilities. Social History Type Response Date Comment Holly hale This section is an empty social history section. DoD
== END 2025-01-20 23:59 | disposition home or self-care (01) ==
LOC: LAB.DROPOF 22:26
PROVIDERS: PCP Internal Medicine; Visit Provider Internal Medicine
DX: E78.5 Hyperlipidemia, unspecified (principal)
CPT/HCPCS: 80061

== ENCOUNTER 2025-02-22 21:33 | Emergency (ER) | payer MEDICARE, OTHER, SELFPAY ==
[2025-02-22 21:42] VITALS: BP 149/77; PULSE 88; RESP 16; TEMP 36.6; O2SAT 96; BMI 32.1
--- OUTSIDE RECORDS SUMMARY | 2025-02-22 21:49 | XMS_ITS | Continuity of Care Document ---
Author Name [facility] Organization [facility] Care Team Providers Care Fact Checker Name Role Phone [facility] Unavailable Unavailable Problems Combined list of problems from Department of Defense and Veterans Affairs facilities. It does not include entries that were removed or entered in error. Problem Status Onset Date Problem Type Date of Resolution Comments Source Exposure to potentially hazardous substance Active Condition [facility] Diagnosis: ICD-10-CM Z77.29 Contact with and exposure to other hazardous substances Active Diagnosis [facility] Medications Combined list of outpatient medications from Department of [facility] and [facility] facilities.Medications provided include 1) outpatient medications from the last 15 months, and 2) patient-reported medications. Medication Details Route Status Patient Instructions Prescription Expires Prescription Number Last Dispense Date Ordering Provider Order Date Order Qty Source ATORVASTATI N CALCIUM (atorvastat in calcium), 10 MG, TABLET, ORAL, [employer] [facility], 1000 ea. BOTTLE Active [id number] 2023 90 Pharmac y Data Transac tion Service Facilit y RANOLAZINE ER (ranolazine ), 500 MG, TAB ER 12H, ORAL, [employer], 60 ea. BOTTLE Cancele d [id number] : 2023 0 Pharmac y Data Transac tion Service Facilit y RANOLAZINE ER (ranolazine ), 500 MG, TAB ER 12H, ORAL, [employer], 60 ea. BOTTLE Cancele d [id number] 4 [id number] : 2023 0 Pharmac y Data Transac tion Service Facilit y RANOLAZINE ER (ranolazine ), 500 MG, TAB ER 12H, ORAL, AVKARE, 60 ea. BOTTLE Cancele d [id number] : 2023 0 Pharmac y Data Transac tion Service Facilit y RANOLAZINE ER (ranolazine ), 500 MG, TAB ER 12H, ORAL, [facility] PHA, 60 ea. BOTTLE Cancele d [id number] 4 [id number] : 2023 0 Pharmac y Data Transac tion Service Facilit y RANOLAZINE ER (ranolazine ), 500 MG, TAB ER 12H, ORAL, WE[facility] PHA, 60 ea. BOTTLE Cancele d [id number] : 2023 0 Pharmac y Data Transac tion Service Facilit y Immunizations Combined list of available immunizations from the Department of Defense and [facility] facilities. Immunization Series Date Given Administered By Site Reaction Lot Number CVX Code Drug Colorist Photography Status Comments Source COVID-19 vaccine, vector-nr, rS-Ad26, PF, 0.5 mL 2020 ЕЛЕНА, () Not Given COVID-19 vaccine, vector-nr , rS-Ad26, PF, 0.5 mL DoD Encounters Combined list of: 1) Encounters from [facility] of [facility] facilities going backup to the last 18 months, not all [place] inpatient encounters are included; 2) Encounters from the Department of [facility] facilities going backup to 280 months. Location Location Details Encounter Type Encounter Number Reason For Visit Attending Provider ADM Date DC Date Status Disposition Source [facility] Outpatient Encounter [id number] 01/10 [place] [facility] Outpatient Encounter [id number] 01/10 [place] [facility] BRIEF COMUNICAJ TECH-BSD C [id number] Diagnos is: ICD-10- CM Z77.29 Contact with and exposur e to other hazardo us substan oleksandr JATIN VELAZQUEZ 01/15 [place] Procedures Combined list of: 1) Procedures from Department of Veterans Affairs facilities going back up to thelast 18 months, not all [place] non-surgical procedures are included; 2) All procedures from the Department of [facility] facilities. Procedure Procedure Type Code Date Perfomer Comments Sourc e EXCISION OF PILONIDAL CYST O R SINUS 03/03/1993 [facility] OTHER UMBILICAL HERNIORRHAPHY 10/12/1992 DoD Social History Combined list of available smoking, tobacco, and other social history from Department of Defense and Veterans Affairs facilities. Social History Type Response Date Comment Sourc e This section is an empty social history section. DoD
--- OUTSIDE RECORDS SUMMARY | 2025-02-22 21:50 | XMS_ITS | Encounter Summary ---
Author Organization [employer] Address [address] [facility] [place] [address] Care Team Providers Care Pocket Setter Lockstitch Name Role Phone Unavailable Primary Care Provider Unavailabl e Encounter Details Date Type Department Care Team (Late st Contact Info) Description 11/19/2020 Transcribed Document [facility] [place] [address] ProviderSalma MD [address] [place] [address] [id number] Social History Tobacco Use Types Packs/Day Years Used Date Smoking Tobacco: Never Assessed Sex and Gender Information Value Date Recorded Sex Assigned at Not on file Legal Sex Male 2:08 PM CDT Gender Identity Not on file Sexual Orientation Not on file documented as of this encounter Miscellaneous Notes * Cerner Conversion Note - Salma Montgomery MD - 11/19/2020 6:45 AM CDT Patient: RAYMOND ALFARO III, III Age: 65 years Sex: Male : 1955 Associated Diagnoses: None Author: KIMBERLY GONSALVES II, MD-ANS Procedure Performed: Lumbar Rhizotomy at L3, L4 and L5 on the right for a total of 3 injection sites. Preoperative Diagnosis: Low back pain secondary to Lumbar Spondylosis Lumbar Facet Disease Postoperative Diagnosis: Same Anesthesia: Local only Complications: none Fluoroscopy: 1.00 Procedure: The risk and benefits were explained. An informed consent was obtained. The patient was placed in a prone position. Landmarks were identified. A sterile prep was performed. A lidocaine skin wheal was raised over the inferior articulating process of the facet joint(s) at the L3, L4 and L5 on the right for a total of 3 injection sites. I then used fluoroscopic guidance and directed a 22g Rhizotomy needle into the appropriate locations just adjacent to the facet joints. I then applied sensory and motor stimulation with appropriate responses at less than 0.5 milliamps. I then injected .5ml of 0.5% Ropivacaine diluted with .5ml PF normal saline at each site and performed Rhizotomy at 80 degrees for 90 seconds each site. The patient tolerated the procedure well without complications. documented in this encounter Plan of Treatment Not on file documented as of this encounter Visit Diagnoses Not on filedocumented in this encounter
--- OUTSIDE RECORDS SUMMARY | 2025-02-22 21:50 | XMS_ITS | Clinical Summary ---
Author Organization [employer] Address [address] [place] [address] Care Team Providers Care Technical Assistance Consultant Name Role Phone Unavailable Primary Care Provider Unavailabl e Social History Tobacco Use Types Packs/Day Years Used Date Smoking Tobacco: Never Assessed Sex and Gender Information Value Date Recorded Sex Assigned at Not on file Legal Sex Male 2:08 PM CDT Gender Identity Not on file Sexual Orientation Not on file Plan of Treatment Not on file
--- OUTSIDE RECORDS SUMMARY | 2025-02-22 21:50 | XMS_ITS | Encounter Summary ---
Author Organization [employer] Address [address] [place] [address] Care Team Providers Care Cleaner Window Name Role Phone Unavailable Primary Care Provider Unavailabl e Encounter Details Date Type Department Care Team (Late st Contact Info) Description 07/24/2020 Transcribed Document [facility] [place] [address] [place] [address] ProviderSalma MD [address] [place] [address] [phone] Social History Tobacco Use Types Packs/Day Years Used Date Smoking Tobacco: Never Assessed Sex and Gender Information Value Date Recorded Sex Assigned at Not on file Legal Sex Male 2:08 PM CDT Gender Identity Not on file Sexual Orientation Not on file documented as of this encounter Miscellaneous Notes * Cerner Conversion Note - Salma Montgoemry MD - 07/24/2020 10:13 AM DRILL SHARPENER Patient: RAYMOND ALFARO III, III Age: 65 years Sex: Male : 1955 Associated Diagnoses: None Author: KIMBERLY GONSALVES II, MD-ANS Procedure: Medial Branch Block at L4, L5 and Sacral Ala bilaterally for a total of 6 injection sites. Pre-Procedure Diagnosis: Low back pain secondary to Lumbar Spondylosis Lumbar Facet Disease Post-Procedure Diagnosis: Same Anesthesia: Local (1% Lidocaine) only Complications: none Fluoroscopy: .42 Descriptions of Procedure: Risk and benefits were explained. An informed consent was obtained. The patient was taken to the procedure room and placed in a prone position. The area was prepped and draped in a sterile fashion. Landmarks were identified. A sterile prep was performed. A lidocaine skin wheal was raised over the inferior articulating process of the facet joints at L4, L5 and Sacral Ala bilaterally for a total of 6 injections sites. I then used a 22g 3 1/2 inch spinal needle at each site directed under fluoroscopic guidance into the appropriate location at the inferior articulating process. I then injected 1ml of 0.5% Ropivacaine at each site. The patient tolerated the procedure well and was transported to the post procedure area in stable condition Electronically signed by Christine Burns Conversion General Studies Program Chair Cerner at 12/21/2022 7:43 AM CDT documented in this encounter Plan of Treatment Not on file documented as of this encounter Visit Diagnoses Not on filedocumented in this encounter
--- OUTSIDE RECORDS SUMMARY | 2025-02-22 21:50 | XMS_ITS | Data Portability ---
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 [facility]. 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 Diego is a 65-year-old male with chronic low back pain worse since December 2019. Dr. Sorto discussed with him that his MRI shows moderate arthritic changes and some foraminal stenosis on the left at L5-S1. There is no severe nerve compression. Dr. Sorto does not recommend lumbar surgery at this time. We will refer him to pain management to discuss lumbar injections. Mr. Diego understands and agrees with this plan. He retains his MRI disc. Seen by Dr. Sorto and myself. [email or web address] Not available 06/09/2020 13:30:26 06/10/2024 06/10/2024 We discussed the multiple causes of erectile dysfunction ranging from decreased blood supply, low testosterone, psychological, neurologic, etc. we discussed the various treatment options including medications such as sildenafil and tadalafil, intracavernosal injections, vacuum erection devices, and penile prosthesis. Start tamsulosin and tadalafil daily for BPH and erectile dysfunction. [email or web address] Not available 06/23/2024 21:30:02 08/29/2024 08/29/2024 Medical manageme nt of lower urinary symptoms with tamsulosin. Patient request evaluation with vacuum erection device volunteer patient representative. He is not interested in intracavernosal injections. [email or web address] Not available 09/01/2024 11:43:50 12/26/2024 12/26/2024 69-year-old male with history of benign prostatic hyperplasia and erectile dysfunction presenting for follow-up. Benign prostatic hyperplasia managed with tamsulosin. Erectile dysfunction managed with tadalafil. [email or web address] Not available 01/05/2025 18:52:03 Plan of Treatment Reminders Order Date Submit Date Provider Last Modified By Organization Details Last Modified Time Details Appointments None recorded. Lab urinalysis panel, auto 2024 025 [email or web address] 14 [facility] [address], [place], [address], 5 14:56:35 urinalysis panel, auto 2023 024 [email or web address] [facility] [address], [place], [address], 11:43:59 urinalysis panel, auto 2023 024 [email or web address] 14 [facility], [address], [place], [address], 21:30:04 Referral None recorded. Procedures None recorded. Surgeries None recorded. Imaging None recorded. Medication Orders tadalafil 5 mg tablet 2024 025 [facility] #[id number], [address], [id number], 5 14:56:55 tamsulosin 0.4 mg capsule 2024 025 [facility] #[id number], [address], [id number], 14:56:50 tadalafil 5 mg tablet 2023 [facility][id number], [address] [facility] [address] [place], [id number], 16:32:13 tamsulosin 0.4 mg capsule 2023 JENNYCALDERON [facility][id number], [address] [facility] [address] [place], [id number], 16:32:13 Patient TargetsNo targets recorded. Patient Instructions Encounter Date Encounter Id Patient Instructions Last Modified By Organization Details Last Modified Time 08/29/2024 [id number] learning about healthy weight [email or web address] Not available 09/01/2024 11:43:59 12/26/2024 [id number] learning about healthy weight [email or web address] Not available 12/26/2024 14:56:35 - Continue takin g your medications, including tamsulosin and tadalafil, as prescribed. - Use the vacuum device for erectile dysfunction if needed and discuss with your partner as you have been. - Monitor your urinary patterns and note any significant changes or symptoms. - Follow up with your primary care physician for regular checkups, especially monitoring your renal function. - If you notice any new or worsening symptoms, contact your healthcare provider. [email or web address] Not available 12/26/2024 14:57:35 Reason for Referral None Reported. Results Created Date Observation Date Name Description Value Unit Range Abnormal Flag Note LastModifiedBy Organization Detail LastModifiedTime 06/10/2006/10/2024 urina lysis panel , auto Unknown Analyte Clean Catch Not Available [facility] [address], [place], [address], 06/10/2024 16:56:44 06/10/2006/10/2024 urina lysis panel , auto Unknown Analyte Yellow Not Available [facility] [address], [place], [address], 06/10/2024 16:56:44 06/10/2006/10/2024 urina lysis panel , auto Unknown Analyte Clear Not Available [facility] [address], [place], [address], 06/10/2024 16:56:44 06/10/2006/10/2024 urina lysis panel , auto Unknown Analyte 1.010 Not Available [facility] [address], [place], [address], 06/10/2024 16:56:44 06/10/2006/10/2024 urina lysis panel , auto Unknown Analyte 1.003- 1.035 Not Available [facility] [address], [place], [address], 06/10/2024 16:56:44 06/10/2006/10/2024 urina lysis panel , auto Unknown Analyte 5.0 Not Available [facility] [address], [place], [address], 06/10/2024 16:56:44 06/10/2006/10/2024 urina lysis panel , auto Unknown Analyte 5.0-8. 0 Not Available [facility] [address], [place], [address], 06/10/2024 16:56:44 06/10/2006/10/2024 urina lysis panel , auto Unknown Analyte Negati ve Not Available [facility] [address], [place], [address], 06/10/2024 16:56:44 06/10/2006/10/2024 urina lysis panel , auto Unknown Analyte Negati ve Not Available [facility] [address], [place], [address], 06/10/2024 16:56:44 06/10/2006/10/2024 urina lysis panel , auto Unknown Analyte Negati ve Not Available [facility] [address], [place], [address], 06/10/2024 16:56:44 06/10/2006/10/2024 urina lysis panel , auto Unknown Analyte Negati ve Not Available [facility] [address], [place], [address], 06/10/2024 16:56:44 06/10/2006/10/2024 urina lysis panel , auto Unknown Analyte Negati ve Not Available [facility] [address], [place], [address], 06/10/2024 16:56:44 06/10/2006/10/2024 urina lysis panel , auto Unknown Analyte Negati ve Not Available [facility] [address], [place], [address], 06/10/2024 16:56:44 06/10/2006/10/2024 urina lysis panel , auto Unknown Analyte Normal Not Available [facility] [address], [place], [address], 06/10/2024 16:56:44 06/10/2006/10/2024 urina lysis panel , auto Unknown Analyte Normal Not Available [facility] [address], [place], [address], 06/10/2024 16:56:44 06/10/2006/10/2024 urina lysis panel , auto Unknown Analyte Negati ve Not Available [facility] [address], [place], [address], 06/10/2024 16:56:44 06/10/2006/10/2024 urina lysis panel , auto Unknown Analyte Negati ve Not Available [facility] [address], [place], [address], 06/10/2024 16:56:44 06/10/2006/10/2024 urina lysis panel , auto Unknown Analyte Normal Not Available [facility] [address], [place], [address], 06/10/2024 16:56:44 06/10/2006/10/2024 urina lysis panel , auto Unknown Analyte Normal 1 mg/dl Not Available [facility] [address], [place], [address], 06/10/2024 16:56:44 06/10/2006/10/2024 urina lysis panel , auto Unknown Analyte Negati ve Not Available [facility] [address], [place], [address], 06/10/2024 16:56:44 06/10/2006/10/2024 urina lysis panel , auto Unknown Analyte Negati ve Not Available [facility] [address], [place], [address], 06/10/2024 16:56:44 06/10/2006/10/2024 urina lysis panel , auto Unknown Analyte Negati ve Not Available [facility] [address], [place], [address], 06/10/2024 16:56:44 06/10/2006/10/2024 urina lysis panel , auto Unknown Analyte Negati ve Not Available [facility] [address], [place], [address], 06/10/2024 16:56:44 08/29/20 24 08/29/2024 urina lysis panel , auto Unknown Analyte Clean Catch Not Available [facility] [address], [place], [address], 08/29/2024 14:22:38 08/29/20 24 08/29/2024 urina lysis panel , auto Unknown Analyte Yellow Not Available [facility] [address], [place], [address], 08/29/2024 14:22:38 08/29/20 24 08/29/2024 urina lysis panel , auto Unknown Analyte Clear Not Available [facility] [address], [place], [address], 08/29/2024 14:22:38 08/29/20 24 08/29/2024 urina lysis panel , auto Unknown Analyte 1.025 Not Available [facility] [address], [place], [address], 08/29/2024 14:22:38 08/29/20 24 08/29/2024 urina lysis panel , auto Unknown Analyte 1.003- 1.035 Not Available [facility] [address], [place], [address], 08/29/2024 14:22:38 08/29/20 24 08/29/2024 urina lysis panel , auto Unknown Analyte 5.0 Not Available [facility] [address], [place], [address], 08/29/2024 14:22:38 08/29/20 24 08/29/2024 urina lysis panel , auto Unknown Analyte 5.0-8. 0 Not Available [facility] [address], [place], [address], 08/29/2024 14:22:38 08/29/20 24 08/29/2024 urina lysis panel , auto Unknown Analyte Negati ve Not Available [facility] [address], [address], 08/29/2024 14:22:38 08/29/20 24 08/29/2024 urina lysis panel , auto Unknown Analyte Negati ve Not Available [facility] [address], [place], [address], 08/29/2024 14:22:38 08/29/20 24 08/29/2024 urina lysis panel , auto Unknown Analyte Negati ve Not Available [facility] [address], [place], [address], 08/29/2024 14:22:38 08/29/20 24 08/29/2024 urina lysis panel , auto Unknown Analyte Negati ve Not Available [facility] [address], [place], [address], 08/29/2024 14:22:38 08/29/20 24 08/29/2024 urina lysis panel , auto Unknown Analyte Trace Not Available [facility] [address], [place], [address], 08/29/2024 14:22:38 08/29/20 24 08/29/2024 urina lysis panel , auto Unknown Analyte Negati ve Not Available [facility] [address], [place], [address], 08/29/2024 14:22:38 08/29/20 24 08/29/2024 urina lysis panel , auto Unknown Analyte Normal Not Available [facility] [address], [place], [address], 08/29/2024 14:22:38 08/29/20 24 08/29/2024 urina lysis panel , auto Unknown Analyte Normal Not Available [facility] With [address], [place], [address], 08/29/2024 14:22:38 08/29/20 24 08/29/2024 urina lysis panel , auto Unknown Analyte Negati ve Not Available [facility] [address], [address], 08/29/2024 14:22:38 08/29/20 24 08/29/2024 urina lysis panel , auto Unknown Analyte Negati ve Not Available [facility] [address], [place], [address], 08/29/2024 14:22:38 08/29/20 24 08/29/2024 urina lysis panel , auto Unknown Analyte 1 mg/dl Not Available [facility] [address] [place], [address], 08/29/2024 14:22:38 08/29/20 24 08/29/2024 urina lysis panel , auto Unknown Analyte Normal 1 mg/dl Not Available [facility] [address] [place], [address], 08/29/2024 14:22:38 08/29/20 24 08/29/2024 urina lysis panel , auto Unknown Analyte 1 mg/dl (+) Not Available [facility] With [address] [place], [address], 08/29/2024 14:22:38 08/29/20 24 08/29/2024 urina lysis panel , auto Unknown Analyte Negati ve Not Available [facility] With [address] [place], [address], 08/29/2024 14:22:38 08/29/20 24 08/29/2024 urina lysis panel , auto Unknown Analyte Negati ve Not Available [facility] [address] [place], [address], 08/29/2024 14:22:38 08/29/20 24 08/29/2024 urina lysis panel , auto Unknown Analyte Negati ve Not Available [facility] [address] [place], [address], 08/29/2024 14:22:38 12/27/19 25 12/26/2024 urina lysis panel , auto Unknown Analyte Clean Catch Not Available [facility] [address], [place], [address], 12/26/2024 14:47:21 12/27/19 25 12/26/2024 urina lysis panel , auto Unknown Analyte Yellow Not Available [facility] [address], [place], [address], 12/26/2024 14:47:21 12/27/19 25 12/26/2024 urina lysis panel , auto Unknown Analyte Clear Not Available [facility] [address], [address], 12/26/2024 14:47:21 12/27/19 25 12/26/2024 urina lysis panel , auto Unknown Analyte 1.020 Not Available [facility] [address], [place], [address], 12/26/2024 14:47:21 12/27/19 25 12/26/2024 urina lysis panel , auto Unknown Analyte 1.003 - 1.030 Not Available [facility] [address], [place], [address], 12/26/2024 14:47:21 12/27/19 25 12/26/2024 urina lysis panel , auto Unknown Analyte 5.0 Not Available [facility] [address], [place], [address], 12/26/2024 14:47:21 12/27/19 25 12/26/2024 urina lysis panel , auto Unknown Analyte 5.0 - 8.0 Not Available [facility] [address] [place], [address], 12/26/2024 14:47:21 12/27/19 25 12/26/2024 urina lysis panel , auto Unknown Analyte Negati ve Not Available [facility] With [address] [place], [address], 12/26/2024 14:47:21 12/27/19 25 12/26/2024 urina lysis panel , auto Unknown Analyte Negati ve Not Available [facility] With [address] [place], [address], 12/26/2024 14:47:21 12/27/19 25 12/26/2024 urina lysis panel , auto Unknown Analyte Negati ve Not Available [facility] With [address] [place], [address], 12/26/2024 14:47:21 12/27/19 25 12/26/2024 urina lysis panel , auto Unknown Analyte Negati ve Not Available [facility] With [address] [place], [address], 12/26/2024 14:47:21 12/27/19 25 12/26/2024 urina lysis panel , auto Unknown Analyte Negati ve Not Available [facility] With [address] [place], [address], 12/26/2024 14:47:21 12/27/19 25 12/26/2024 urina lysis panel , auto Unknown Analyte Negati ve Not Available [facility] With [address] [place], [address], 12/26/2024 14:47:21 12/27/19 25 12/26/2024 urina lysis panel , auto Unknown Analyte Normal Not Available [facility] [address], [place], [address], 12/26/2024 14:47:21 12/27/19 25 12/26/2024 urina lysis panel , auto Unknown Analyte Normal Not Available [facility] With [address] [place], [address], 12/26/2024 14:47:21 12/27/19 25 12/26/2024 urina lysis panel , auto Unknown Analyte Negati ve Not Available [facility] [address] [place], [address], 12/26/2024 14:47:21 12/27/19 25 12/26/2024 urina lysis panel , auto Unknown Analyte Negati ve Not Available [facility] [address], [place], [address], 12/26/2024 14:47:21 12/27/19 25 12/26/2024 urina lysis panel , auto Unknown Analyte Normal Not Available [facility] [address], [address], 12/26/2024 14:47:21 12/27/19 25 12/26/2024 urina lysis panel , auto Unknown Analyte Normal Not Available [facility] With [address] [place], [address], 12/26/2024 14:47:21 12/27/19 25 12/26/2024 urina lysis panel , auto Unknown Analyte Negati ve Not Available [facility] [address], [place], [address], 12/26/2024 14:47:21 12/27/19 25 12/26/2024 urina lysis panel , auto Unknown Analyte Negati ve Not Available [facility] With [address] [place], [address], 12/26/2024 14:47:21 12/27/19 25 12/26/2024 urina lysis panel , auto Unknown Analyte Negati ve Not Available [facility] With [address], [address], 12/26/2024 14:47:21 12/27/19 25 12/26/2024 urina lysis panel , auto Unknown Analyte Negati ve Not Available [facility] With [address], [place], [address], 12/26/2024 14:47:21 06/10/20 20 04/13/2020 MRI, lumba r spine , w/o contr ast No observ ation record ed. BARCODE Not Available 2019 08:52:46 Result Notes None recorded. Procedures Surgical History Date Name Laterality Status Provider Name and Address Organization Details Recorded Time 09/04/18 91 Nephrectomy completed Krupa [facility] 06/10/2024 16:20:32 09/04/18 80 Vasectomy completed Krupa Villalba [facility] 06/10/2024 16:21:21 Hernia repair w/mesh completed Tammy Gayle [facility] 06/09/2020 13:05:16 kidney excision completed Tammy Gayle [facility] 06/09/2020 13:05:28 cholecystectomy completed Tammy Gayle [facility] 06/09/2020 13:05:37 procedure on knee completed Tammy Stout [facility] 06/09/2020 13:05:50 Imaging Results None recorded. Procedure Notes None recorded. Medical Equipment None Reported. Allergies No known drug allergies Medications Name Sig Start Date Stop Date Status Note LastModified by Organization Details LastModified Time promethazine -DM 6.25 mg-15 mg/5 mL oral syrup 06/09 completed Not Available Not Available Not Available prednisone 10 mg tablet 06/09 completed Not Available Not Available Not Available atorvastatin 10 mg tablet 12/26 completed Not Available Not Available Not Available azithromycin 250 mg tablet 06/09 completed Not Available Not Available Not Available tizanidine 4 mg tablet 06/09 completed Not Available Not Available Not Available bisoprolol fumarate 5 mg tablet 12/26 completed Not Available Not Available Not Available tamsulosin 0.4 mg capsule Take 1 capsule every day by oral route for 90 days. 2024 active Not Available Not Available Not Avai lable oseltamivir 75 mg capsule 06/09 completed Not Available Not Available Not Available ondansetron 4 mg disintegrati ng tablet 06/09 completed Not Available Not Available Not Available cefdinir 300 mg capsule TAKE 1 CAPSULE BY MOUTH TWICE DAILY FOR 10 DAYS 12/26 completed Not Available Not Available Not Available esomeprazole magnesium 20 mg capsule,payton yed release Take 1 capsule every day by oral route. active Not Available Not Available No t Available tadalafil 5 mg tablet Take 1 tablet every day by oral route for 30 days. 2024 active Not Available Not Available Not Avai lable bisoprolol fumarate 1 daily 12/26 completed Not Available Not Available Not Available ranolazine ER 500 mg tablet,exten ded release,12 hr TAKE 1 TABLET BY MOUTH TWICE DAILY active Not Available Not Available No t Available Vitals Date Recorded Body height Body mass index (BMI) Body weight Provider Name and Address Organization Details Last Updated DateTime 12/26/2024 180.34 cm 32.5 kg/m2 451018.02 g Alise Osvaldo [facility] 12/26/2024 14:45:32 Date Recorded Body weight Body mass index (BMI) Body height Heart rate Systolic blood pressure Diastolic blood pressure Provider Name and Address Organization Details Last Updated DateTime 0 595139. 28 g 31.4 kg/m2 180.34 cm 72 /min 137 mm[Hg] 76 mm[Hg] Tammy Gayle [facility] 13:03:11 Date Recorded Body height Body mass index (BMI) Body weight Provider Name and Address Organization Details Last Updated DateTime 08/29/2024 180.34 cm 32.1 kg/m2 146202.25 florencio Riley [facility] 08/29/2024 14:19:44 Social History Question Answer Notes LastModified by Organizat ion Details LastModified Time Tobacco Smoking Status Former Smoker Tammy major, [facility] 06/09/2020 13:05:00 What Was The Date Of Your Most Recent Tobacco Screening? 12/26/2024 [email or web address] Information not available 12/26/2024 What Is Your Relationship Status? [email or web address] Information not available 06/10/2024 How Much Tobacco Do You Smoke? 1 PPD Information not available 06/09/2020 How Many Years Have You Smoked Tobacco? 18 Information not available 06/09/2020 Sex: Male Functional Status Question Answer Note LastModified by Organization D etails LastModified Time What is your level of alcohol consumption? None Information not available 06/10/2024 Are you currently employed? Yes [email or web address] Information not available 06/10/2024 What is your occupation? retired [email or web address] Information not available 06/10/2024 Mental Status None recorded. Family History Relationship Description Onset Age of this Age Resolved Age Notes LastModified by Organization Details LastModified Time Father No current problems or disability [email or web address] Not available 06/09 13:04:53 Mother No current problems or disability [email or web address] Not available 06/09 13:04:53 Medical History Condition Response Coronary Artery Disease N Other N Gout N Kidney Stones N Kidney Cyst N Enlarged Prostate N Heart Arrhythmia N Emphysema N Erectile Dysfunction Y Head Trauma/Injury N Sexually Transmitted Disease N Depression N Pneumonia N Incontinence N Prostate Problems N Cancer Prostate N Paralysis N Anxiety Disorder N Hemorrhoids Y Obesity N Arthritis Y Infertility N Acid Reflux (GERD) Y Cancer Y Hematuria N Stroke N Neck Injury N Neurologic Disorder N Previous Radiation Therapy? N Kidney Disease N Heart Conditions N Kidney or Bladder Problems N Urinary Problems Y Constipation N Brain Injury N Ulcers N Prostate Hypertrophy N Low Testosterone N Tuberculosis Y Previous Chemotherapy? N AIDS/HIV N BPH N Urinary Tract Infection N Asthma N Cardiac Disease N Thyroid Disorder N Hepatitis N PCOS N Colon Cancer N Hernia Y Colon/Rectal Disorders N Ostomy N Glaucoma N Pacemaker N Anesthesia Complications N Genitourinary Disease N Chronic Kidney Disease N Radiation Therapy N Bladder or Kidney Problems N Back Injury N High Cholesterol N High PSA N Liver Disease N Nervous System Disorder N Organ Transplant N Dialysis N Allergies/Hayfever N False Teeth N Chronic Obstructive Pulmonary Disease N Parkinson's Disease N Chemotherapy N Anemia N Transplant N Back Pain Y Chest Pain Y Multiple Sclerosis N Proteinuria N Heart Attack ([place]) N Mental Illness N Diabetes N Ovarian Cancer N Seizures/Epilepsy N Genitourinary problem(s) N Congestive Heart Failure (CHF) N Kidney Failure N Sleep Apnea Y Bronchitis Y Heart Disease N Hypertension N Past Encounters Encounter ID Performer Location Encounter Start Date Encounter Closed Date Diagnosis/Indication Diagnosis SNOMED-CT Code Diagnosis ICD10 Code Diagnosis Note [id number] ELIDA NUGENT PA-C [facility] [address] [place] [id number] 06/09/2020 12:45:27 06/09/2020 13:37:51 Lumbar spondylosis 291273066 M47.896 [id number] BALTAZAR GARCÍA MD [facility] [address] [place] [id number] 06/10/2024 16:10:40 06/10/2024 16:37:40 Erectile dysfunction 042248062 F52.21 Benign pro static hyperplasia with outflow obstruction 426151715 N40.1 History of malignant neoplasm of kidney 747742561 Z85.528 [id number] BALTAZAR GARCÍA MD [facility] [address] [place] [address] ,[address] [place] [address] 08/29/2024 13:55:40 08/29/2024 16:46:52 Benign prostatic hyperplasia with outflow obstruction 932824307 N40.1 Primary er ectile dysfunction 494738748 N52.9 [id number] BALTAZAR GARCÍA MD [facility] [address] [place] [address] ,[address] [place] [address] 12/26/2024 14:36:02 12/27/2024 10:23:40 Benign prostatic hyperplasia with outflow obstruction 327095030 N40.1 N13.8 Continue tamsulosin . Monitor urination and symptoms. Primary er ectile dysfunction 314375053 N52.9 History of malignant neoplasm of retroperitoneum 3290985274 9107 Z85.528 Monitor renal function. No new interventi ons required. Erectile dysfunction 860 335025 F52.21 Maintain daily tadalafil and use vacuum erection device as needed. Health Concerns Section Related Observation LastModified by Organization Detai ls LastModified Time None Recorded Concern Status LastModified by Organization Details LastModified Time None Recorded Advance Directives Directive None Recorded Payers Insurance Date Sequence Insurance Name Policy Number Policy Denise Covered Member ID Denise Member ID Guarantor Name 01/06/2025 2 FOR LIFE () Raymond Diego [id number] Raymond Diego 12/23/2024 1 MED[place]ARE-[place] ([place]ICARE) Raymond Diego III [id number] Raymond Diego 06/10/2024 1 [place]: [facility] [id number] Raymond Diego [id number] Raymond Diego Notes Date Note Type Note Provider Name and Address Organization Details Recorded Time 06/09/2020 text/html Mr. Diego re ports low back pain for most of his adult life. It worsens in December of this year. At that time he was having pain across his low back with pain radiating into the left lateral thigh to about his knee. Occasionally he would have pain in the left posterior thigh and calf to the ankle. His pain was especially worse when he was assigned to a job at work that involved leaning over a table. Now that he has changed to a different station he has had some improvement in his pain. Currently he has pain across his low back and pain in the left lateral thigh to the knee when he wakes up in the morning. However the leg pain eases as he walks and moves around. He is rarely had right leg symptoms. He had physical therapy this summer with only temporary improvement. He did have some sacral injections in about 1992 that helped with his pain at that time. He was diagnosed with renal cell cancer in the early s and has had a nephrectomy. For that reason he avoids NSAIDs. ELIDA NUGENT PA-C [address] [place], [address], [facility] 06/09/2020 13:30:55 06/10/2024 text/html 69-year-old male in the office for my initial evaluation and for discussion of benign prostatic hyperplasia with bladder outlet obstruction and erectile dysfunction. He was referred by Dr. Wilbur Busby. No hesitancy. No urgency. Daytime frequency every 2 hours. Nocturia 2 times. No gross hematuria. No dysuria. He has trouble getting an erection. He has used tadalafil in the past. Patient reports history of renal cell carcinoma status post radical nephrectomy. BALTAZAR GARCÍA MD [address] [place] [address], [phone], [facility] 06/23/2024 21:30:25 08/29/2024 text/html 69-year-old male in the office for follow up of benign prostatic hyperplasia with bladder outlet obstruction and erectile dysfunction. He has history of renal cell carcinoma status post radical nephrectomy. Lower urinary symptoms have improved. He voids 3-4 times daily without nocturia. He takes tamsulosin. No hesitancy or intermittency. Patient reports being able to achieve 50% of a satisfactory erection. He has not had satisfactory improvement with oral phosphodiesterase inhibitors. BALTAZAR GARCÍA MD [address] [place] [address], [phone], [facility] 09/01/2024 11:44:16 12/26/2024 text/html The patient is a 69-year-old male presenting for follow-up on benign prostatic hyperplasia. Urination is currently normal and without obstruction. Daytime frequency is normal relative to fluid intake, with rare nocturia noted. No evidence of dysuria or hematuria is reported. The patient is on tamsulosin therapy. Erectile dysfunction is a concern, with occasional spontaneous erections documented. The patient uses tadalafil and a vacuum erection device, discussing its utility with his partner. 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 Creatinine is slightly elevated but within acceptable limits given the clinical background. - Labs/Tests: - Recent Prostate-Specific Antigen (PSA) test: Normal - Recent Creatinine level: 3/10ths above normal range BALTAZAR GARCÍA MD [address] [place] [address], [phone], [facility] 01/05/2025 18:52:23
--- OUTSIDE RECORDS SUMMARY | 2025-02-22 21:50 | XMS_ITS | Continuity of Care Document ---
Author Organization [facility] Emmanuelle sanders [facility] Address [address] [place] [address] Care Team Providers Care Traffic And Transport Planner Name Role Phone JW BUSBY Referring Provider JW BUSBY Primary Care Provider Assessment Encounter Date Assessment Date Assessment LastModified by Organization Details LastModified Time 12/26/2024 12/26/2024 69-year-old male with history of benign prostatic hyperplasia and erectile dysfunction presenting for follow-up. Benign prostatic hyperplasia managed with tamsulosin. Erectile dysfunction managed with tadalafil. [email or web address] Not available 01/05/2025 18:52:03 Plan of Treatment Reminders Order Date Submit Date Provider Last Modified By Organization Details Last Modified Time Details Appointments None recorded. Lab urinalysis panel, auto 2024 025 [email or web address] 14 [facility], [address] [place] [address] [address], [place], [address], 14:56:35 Referral None recorded. Procedures None recorded. Surgeries None recorded. Imaging None recorded. Medication Orders tadalafil 5 mg tablet 2024 025 [facility] #[id number], [address], [place], [place], [id number], 14:56:55 tamsulosin 0.4 mg capsule 2024 025 [facility] #[id number], [address] [address] [place], [id number], 14:56:50 Patient TargetsNo targets recorded. Patient Instructions Encounter Date Encounter Id Patient Instructions Last Modified By Organization Details Last Modified Time 12/26/2024 [id number] learning about healthy weight [email or web address] Not available 12/26/2024 14:56:35 - Continue takin [...] Abnormal Flag Note LastModifiedBy Organization Detail LastModifiedTime 12/27/1912/26/2024 urina lysis panel , auto Unknown Analyte Clean Catch Not Available [facility] [place] [facility] With [address], [place], [address], 12/26/2024 14:47:21 12/27/1912/26/2024 urina lysis panel , auto Unknown Analyte Yellow Not Available [facility] With [address], [place], [address], 12/26/2024 14:47:21 12/27/1912/26/2024 urina lysis panel , auto Unknown Analyte Clear Not Available [facility] With [address] [place], [address], 12/26/2024 14:47:21 12/27/19 25 12/26/2024 urina lysis panel , auto Unknown Analyte 1.020 Not Available [facility] With [address] [place], [address], 12/26/2024 14:47:21 12/27/19 25 12/26/2024 urina lysis panel , auto Unknown Analyte 1.003 - 1.030 Not Available [facility] With [address], [place], [address], 12/26/2024 14:47:21 12/27/19 25 12/26/2024 urina lysis panel , auto Unknown Analyte 5.0 Not Available [facility] With [address] [place], [address], 12/26/2024 14:47:21 12/27/19 25 12/26/2024 urina lysis panel , auto Unknown Analyte 5.0 - 8.0 Not Available [facility] With [address], [place], [address], 12/26/2024 14:47:21 12/27/19 25 12/26/2024 urina lysis panel , auto Unknown Analyte Negati ve Not Available [facility] With [address], [place], [address], 12/26/2024 14:47:21 12/27/19 25 12/26/2024 urina lysis panel , auto Unknown Analyte Negati ve Not Available [facility] With [address], [place], [address], 12/26/2024 14:47:21 12/27/19 25 12/26/2024 urina lysis panel , auto Unknown Analyte Negati ve Not Available [facility] With [address] [place], [address], 12/26/2024 14:47:21 12/27/19 25 12/26/2024 urina lysis panel , auto Unknown Analyte Negati ve Not Available [facility] [address] [place], [address], 12/26/2024 14:47:21 12/27/19 25 12/26/2024 urina lysis panel , auto Unknown Analyte Negati ve Not Available [facility] With [address] [place], [address], 12/26/2024 14:47:21 12/27/19 25 12/26/2024 urina lysis panel , auto Unknown Analyte Negati ve Not Available [facility] With [address] [place], [address], 12/26/2024 14:47:21 12/27/19 25 12/26/2024 urina lysis panel , auto Unknown Analyte Normal Not Available [facility] With [address] [place], [address], 12/26/2024 14:47:21 12/27/19 25 12/26/2024 urina lysis panel , auto Unknown Analyte Normal Not Available [facility] With [address] [place], [address], 12/26/2024 14:47:21 12/27/19 25 12/26/2024 urina lysis panel , auto Unknown Analyte Negati ve Not Available [facility] With [address] [place], [address], 12/26/2024 14:47:21 12/27/19 25 12/26/2024 urina lysis panel , auto Unknown Analyte Negati ve Not Available [facility] With [address] [place], [address], 12/26/2024 14:47:21 12/27/19 25 12/26/2024 urina lysis panel , auto Unknown Analyte Normal Not Available [facility] With [address] [place], [address], 12/26/2024 14:47:21 12/27/19 25 12/26/2024 urina lysis panel , auto Unknown Analyte Normal Not Available [facility] With [address] [place], [address], 12/26/2024 14:47:21 12/27/19 25 12/26/2024 urina lysis panel , auto Unknown Analyte Negati ve Not Available [facility] With [address] [place], [address], 12/26/2024 14:47:21 12/27/19 25 12/26/2024 urina lysis panel , auto Unknown Analyte Negati ve Not Available [facility] With [address] [place], [address], 12/26/2024 14:47:21 12/27/19 25 12/26/2024 urina lysis panel , auto Unknown Analyte Negati ve Not Available [facility] With [address] [place], [address], 12/26/2024 14:47:21 12/27/19 25 12/26/2024 urina lysis panel , auto Unknown Analyte Negati ve Not Available [facility] With [address] [place], [address], 12/26/2024 14:47:21 Result Notes None recorded. Procedures Surgical History Date Name Laterality Status Provider Name and Address Organization Details Recorded Time 09/04/18 91 Nephrectomy completed Krupa Deejay [facility] 06/10/2024 16:20:32 09/04/18 80 Vasectomy completed Krupa Villalba [facility] 06/10/2024 16:21:21 Hernia repair w/mesh completed Tammy Gayle [facility] 06/09/2020 13:05:16 kidney excision completed Tammy Gayle [facility] 06/09/2020 13:05:28 cholecystectomy completed Tammy ALEXIS [facility] 06/09/2020 13:05:37 procedure on knee completed Tammy Stout [facility] 06/09/2020 13:05:50 Imaging Results None recorded. Procedure [...] Updated DateTime 12/26/2024 180.34 cm 32.5 kg/m2 683844.02 [email or web address] Riley [facility] 12/26/2024 14:45:32 Social History Question Answer Notes LastModified by Organizat ion Details LastModified Time Tobacco Smoking Status [facility] 13:05:00 What Was The Date Of Your Most Recent Tobacco Screening? 12/26/2024 [email or web address] Information not available 12/26/2024 What Is Your Relationship Status? [email or web address] Information not available 06/10/2024 How Much Tobacco Do You Smoke? 1 PPD Information not available 06/09/2020 How Many Years Have You Smoked Tobacco? 18 Information not available 06/09/2020 Sex: Male Functional Status Question Answer Note LastModified by Organization D etails LastModified Time What is your level of alcohol consumption? None [email or web address] Information not available 06/10/2024 Are you currently employed? Yes [email or web address] Information not available 06/10/2024 What is your occupation? retired [email or web address] Information not available 06/10/2024 Mental Status None [...] Multiple Sclerosis N Proteinuria N Heart Attack ([place]) N Mental Illness N Diabetes N Ovarian Cancer N Seizures/Epilepsy N Genitourinary problem(s) N Congestive Heart Failure (CHF) N Kidney Failure N Sleep Apnea Y Bronchitis Y Heart Disease N Hypertension N Past Encounters Encounter ID Performer Location Encounter Start Date Encounter Closed Date Diagnosis/Indication Diagnosis SNOMED-CT Code Diagnosis ICD10 Code Diagnosis Note [id number] BALATZAR GARCÍA MD [facility] [address] [place] [address],[place] [address] 12/26/2024 14:36:02 12/27/2024 10:23:40 Benign prostatic hyperplasia with outflow obstruction 765906019 N40.1 N13.8 Continue tamsulosin . Monitor urination and symptoms. Primary er ectile dysfunction 733341610 N52.9 History of malignant neoplasm of retroperitoneum 7385193777 9107 Z85.528 Monitor renal function. No new interventi ons required. Erectile dysfunction 860 097905 F52.21 Maintain daily tadalafil and use vacuum erection device as needed. Health Concerns Section Related Observation LastModified by Organization Detai ls LastModified Time None Recorded Concern Status LastModified by Organization Details LastModified Time None Recorded Payers Encounter Date Sequence Insurance Name Policy Number Policy Denise Covered Member ID Denise Member ID Guarantor Name 12/26/2024 1 [place] Raymond Diego III [id number] Raymond Diego 12/26/2024 2 FOR LIFE () Raymond Diego [id number] Raymond Diego Notes Date Note Type Note Provider Name and Address Organization Details Recorded Time 12/26/2024 text/html The patient is a 69-year-old [...] 3/10ths above normal range BALTAZAR GARCÍA MD [address] [place] [address], [address], [facility] 01/05/2025 18:52:23
--- OUTSIDE RECORDS SUMMARY | 2025-02-22 21:50 | XMS_ITS | Clinical Summary ---
Author Organization [facility] Address [address] [place] [address] Care Team Providers Care Hog Cutter Name Role Phone Wilbur Davalos MD Primary Care Provider [phone] Allergies Active Allergy Reactions Criticality Noted Date Comments Iv Contrast Hives Medium 04/29/2022 Medications atorvastatin (Lipitor) 10 MG tablet Take 10 mg by mouth every night. 02/02/2022 Active bisoprolol (Zebeta) 5 MG tablet Take 2.5 mg by mouth every night. 02/01/2022 Active esomeprazole (NexIUM) [address] capsule 20 mg every night. OTC Active Active Problems Problem Noted Date Diagnosed Date Flank hernia 09/21/2022 Overview (09/21/2022): Added automatically from request for surgery [id number] Family History Medical History Relation Name Comments Hypertension Mother Relation Name Status Comments Mother Social History Tobacco Use Types Packs/Day Years Used Date Smoking Tobacco: Former Cigarettes 1 20 1 0 - 1989 Passive Smoke Exposure: Past Smokeless Tobacco: Never Tobacco Cessation:Counseling Given: No Alcohol Use Standard Drinks/Week Comments Not Currently 0 (1 standard drink = 0.6 oz pur e alcohol) Not since 1989 PHQ-2 Answer Date Recorded Patient Health Questionnaire-2 Score 0 12/28/2022 CAGE ASSESSMENT Answer Date Recorded Cage unable to access Not on file 11/02/2022 Cage max number of drinks Not on file 2022 Cage Beverages a week Not on file 11/02/2022 Have you ever felt you should CUT down on your d rinking? 0 11/02/2022 Have you been ANNOYED by people criticizing your drinking? 0 11/02/2022 Have you felt GUILTY about your drinking? 0 11/02/2022 Have you had a drink first t abeba in the morning (EYE-PUBLICATIONS WRITER) to steady your nerves or to get rid of a hangover? 0 11/02/2022 CAGE Questionnaire Score 0 023 PHQ-2A Answer Date Recorded Patient Health Questionnaire-2 Score 0 12/28/2022 Sex and Gender Information Value Date Recorded Sex Assigned at Not on file Legal Sex Male 8:53 PM EDT Gender Identity Not on file Sexual Orientation Not on file Last Filed Vital Signs Vital Sign Reading Time Taken Comments Blood Pressure 137/82 12/28/2022 9:01 AM EDT Pulse 73 12/28/2022 9:01 AM EDT Temperature 36.2 C (97.1 F) 12/28/2022 9:01 AM EDT Respiratory Rate 18 12/28/2022 9:01 AM EDT Oxygen Saturation 94% 11/05/2022 11:31 AM EST Inhaled Oxygen Concentration - - Weight 108 kg (238 lb 1.6 oz) 12/28/2022 9:01 AM EDT Height 180.3 cm (5' 11 ) 12/28/2022 9:01 AM EDT Body Mass Index 33.21 12/28/2022 9:01 AM EDT Plan of Treatment Health Maintenance Due Date Last Done Comments [facility]-Hepatitis C Screening 1955 [facility]-Medicare Annual Wellness (AWV) 1955 [facility]-Infant/Child/Adol SDOH Screenings 1955 [facility]- SDOH Screenings 1973 [facility]-Adult SDOH Screenings 1973 [facility]-DTaP,Tdap,and Td Vaccine s (1 - Tdap) 1974 CT Colonography 01/26/2000 Colonoscopy 01/26/2000 FIT-DNA 01/26/2000 FIT 01/26/2000 FOBT 01/26/2000 Sigmoidoscopy 01/26/2000 [facility]-Colorectal Cancer Screening 01/26/2000 [facility]-Pneumococcal Vaccine: 50 + Years (1 of 1 - PCV) 2005 [facility]-Zoster Vaccines (1 of 2) 2005 [facility]-Depression Screening 12/29/2023 12/28/2022 [id number] Vaccine ( - 2024-25 season) 2024 07/07/2022, 12/05/2020 [facility]-Influenza Vaccine (Seaso n Ended) 2025 07/07/2022 [facility]-RSV Vaccine: 60+ Years o r (1 - 1-dose 75+ series) 2030 [facility]-Diabetes: Hemoglobin A1C Discontinued 09/21/2022 [facility]-Obesity Intervention Completed 023, 11/16/2022, 09/21/2022 HPV Vaccines Aged Out No longer eligi ble based on patient's age to complete this topic [facility]-HIB Vaccines Aged Out No longer e ligible based on patient's age to complete this topic [facility]-Hepatitis A Vaccines Aged Out No longer eligible based on patient's age to complete this topic [facility]-IPV Vaccines Aged Out No longer e ligible based on patient's age to complete this topic [facility]-Rotavirus Vaccines Aged Out No lo nger eligible based on patient's age to complete this topic Medical Devices Implanted Type Area Behavioral Technician Device Identifier Shelf Expiration Date Model / Serial / Lot Mesh Ventralight St Echo 8x10 - [id number] Implanted:Qty: 1 on 11/01/2022 by Ronan Rogel MD at [facility] Right: [id number] 06/01/2023 [id number] / / [id number] Procedures Procedure Name Priority Date/Time Associated Diagnosis Comments POCT GLYCOSYLATED HEMOGLOBIN (HGB A1C) Routine 09/21/2022 1:25 PM EST Personal history of nutritional deficiency from Last 3 Months or Most Recently Relevant to Health Maintenance Results * POCT Glycosylated Hemoglobin (Hgb A1C) (09/21/2022 1:25 PM EST) POCT Hemoglobin A1C 5.8 4.4-6.6 % % [facility] [employer] [facility] Kit Lot Number [id number] [facility] [employer] [facility] Kit Expiration Date 12/2024 [employer] [facility] Blood Venous blood specimen / Unknown 09/21/2022 1:25 PM EST us Ronan Rogel MD POINT OF CARE TEST ENTER/EDIT OR DERABLES Final Result [facility] [address] [place] [address] from Last 3 Months or Most Recently Relevant to Health Maintenance Insurance [place] [id number] MEDICARE [facility] Advance Directives * Full Code (Latest Code Status on File) Date Activated Date Inactivated Comments 11/01/2022 5:01 PM 11/05/2022 4:31 PM Question Answer Comments Patient has decision-making capacity? Yes Care Teams Hog Cutter Relationship Specialty Start Date End Date Wilbur Davalos MD [address] [facility] [address] [place] [address] PCP - General 04/29/22
--- OUTSIDE RECORDS SUMMARY | 2025-02-22 21:50 | XMS_ITS | Encounter Summary ---
Author Organization [employer] Address [address] [place] [address] Care Team Providers Care Women'S Studies Lecturer Name Role Phone Unavailable Primary Care Provider Unavailabl e Encounter Details Date Type Department Care Team (Late st Contact Info) Description 10/29/2020 Transcribed Document [facility] [place] Family Medicine [facility] [place] [address] ProviderSalma MD [address] [place] [id number] Social History Tobacco Use Types Packs/Day Years Used Date Smoking Tobacco: Never Assessed Sex and Gender Information Value Date Recorded Sex Assigned at Not on file Legal Sex Male 2:08 PM CDT Gender Identity Not on file Sexual Orientation Not on file documented as of this encounter Miscellaneous Notes * Cerner Conversion Note - Salma Montgomery MD - 10/29/2020 3:51 PM LEAK GANG SUPERVISOR Patient: RAYMOND ALFARO III, III Age: 65 years Sex: Male : 1955 Associated Diagnoses: None Author: KIMBERLY GONSALVES II, MD-ANS Procedure Performed: Lumbar Rhizotomy at L4, L5 and Sacral Ala on the left for a total of 3 injection sites. Preoperative Diagnosis: Low back pain secondary to Lumbar Spondylosis Lumbar Facet Disease Postoperative Diagnosis: Same Anesthesia: Local only Complications: none Fluoroscopy: .42 Procedure: The risk and benefits were explained. An informed consent was obtained. The patient was placed in a prone position. Landmarks were identified. A sterile prep was performed. A lidocaine skin wheal was raised over the inferior articulating process of the facet joint(s) at the L4, L5 and Sacral Ala on the left for a total of 3 injection sites. [...]
--- OUTSIDE RECORDS SUMMARY | 2025-02-22 21:50 | XMS_ITS | Encounter Summary ---
Author Organization [employer] Address [address] [place] [address] Care Team Providers Care Traffic Control Flagger Name Role Phone Unavailable Primary Care Provider Unavailabl e Encounter Details Date Type Department Care Team (Late st Contact Info) Description 07/28/2020 Transcribed Document [facility] [place] Family Medicine [facility] [place] [address] ProviderSalma MD [address] [place] [id number] Social History Tobacco Use Types Packs/Day Years Used Date Smoking Tobacco: Never Assessed Sex and Gender Information Value Date Recorded Sex Assigned at Not on file Legal Sex Male 2:08 PM CDT Gender Identity Not on file Sexual Orientation Not on file documented as of this encounter Miscellaneous Notes * Cerner Conversion Note - Historical ProviderMD - 07/28/2020 12:53 PM GREEN INSPECTOR Patient: RAYMOND ALFARO III Age: 65 Years Sex: Male : 1955 INITIAL PATIENT EVALUATION DATE OF SERVICE: 07/07/2020. CHIEF COMPLAINT: Low back pain. HISTORY OF PRESENT ILLNESS: Mr. Alfaro is a 65-year-old gentleman who states he has had a longstanding history of low back pain but says here over the last several months he has had increasing pain through the area of the lower back that is worse with prolonged sitting, prolonged standing, and pretty much being in any position for extended periods of time. The patient rates his pain currently about 2/10 but he says there are days when it escalates and is significantly impairing normal functionality. The patient has been evaluated by a neurosurgeon who did not feel like surgical intervention was warranted. He recommended interventional techniques. The patient is denying any radiculitis of his pain. He denies any overt weakness. HISTORY: Allergies: No known drug allergies. Past Medical History: History of depression, history of renal cell cancer, reflux, hypertension, obstructive sleep apnea, migraines, pneumonia, previous tobacco use. Past Family History: Unknown. Social History: Marital status: . Current tobacco use: He is a former smoker. Illicit drug use: I have reviewed his MARITZA report. However, he is asking for no controlled substances through our facility. REVIEW OF SYSTEMS: The patient's ten system Review of Systems was reviewed. General: Fatigue, weight gain. Respiratory: Shortness of breath. Neurological: Negative. Gastrointestinal: Reflux. Musculoskeletal: Neck pain, back pain. Cardiovascular: Negative. Psychiatric: Negative. HEENT: Negative. Endocrine: Negative. Hematology: Negative. PHYSICAL EXAMINATION: Vital signs: Blood pressure is 128/81, heart rate is 75. The patient is 5'11 and weighs 225 lbs. Constitutional: The patient is conversant and in no acute distress. Psychiatric: The patient is alert and oriented. Normal mood and affect are noted. HEENT: Normocephalic. Pupils are equally round and nares are patent. Neck: The neck is soft, supple, and nontender. Lungs: The lungs are clear to auscultation with normal chest wall excursion. Heart: The heart is regular with no murmurs, gallops, or rubs. Abdomen: The abdomen is soft and nontender. Skin: Normal turgor with no lesions. Musculoskeletal: The patient transitions from walking, sitting and standing without difficulty. Maintains a normal station and gait. He has axial tenderness to palpation through the lower lumbar segments involving the region of L4-5 and L5-S1 bilaterally with positive facet loading noted through the lumbar segments. Range of motion appears to be intact. No spasms are noted. Neurologic: The patient is intact with no motor or sensory deficits. Symmetric strength is noted through the lower extremities. Reflexes are symmetric. IMPRESSION: 1. Lumbar facet arthritis. 2. Lumbar spondylosis. 3. Lumbar disc disease. DISCUSSION: I have reviewed the patient's imaging studies. He does have some bulging discs that are most notable through the region of L4-5 and L5-S1 with some lateral recess stenosis. However, the patient did not have evidence of a radiculitis. It is my suspicion that his chronic pain is involving a posterior element pathology of the facet joints. I have used a spine model to demonstrate pathology and recommended treatment. We are going to perform a diagnostic medial branch block targeting the region of L4, L5, and the sacral ala. If he does well with this, we will move forward with the rhizotomy procedure. If he does not get relief with the diagnostic block, he may be presenting with an atypical presentation of disc disease, in which case we can involve an epidural steroid injection. No medications are being written for the patient at this time. We will see him back in follow-up after the diagnostic medial branch block. Pako Blackburn II, M.D. DANIEL/adrian Electronically signed by Christine Burns Conversion Construction Code Administrator Cerner at 12/21/2022 8:09 AM CDT documented in this encounter Plan of Treatment Not on file documented as of this encounter Visit Diagnoses Not on filedocumented in this encounter
--- OUTSIDE RECORDS SUMMARY | 2025-02-22 21:50 | XMS_ITS | Referral Summary ---
Author Organization [employer] Address [address] [place] [address] Care Team Providers Care Gasoline Locomotive Crane Operator Name Role Phone Unavailable Primary Care Provider [...]
--- OUTSIDE RECORDS SUMMARY | 2025-02-22 21:50 | XMS_ITS | Encounter Summary ---
Author Organization [employer] Address [address] [place] [address] Care Team Providers Care Luncheonette Operator Name Role Phone Unavailable Primary Care Provider Unavailabl e Encounter Details Date Type Department Care Team (Late st Contact Info) Description 10/01/2020 Transcribed Document [facility] [place] [facility] [place] [address] ProviderSalma MD [address] [place] [id number] Social History Tobacco Use Types Packs/Day Years Used Date Smoking Tobacco: Never Assessed Sex and Gender Information Value Date Recorded Sex Assigned at Not on file Legal Sex Male 2:08 PM CDT Gender Identity Not on file Sexual Orientation Not on file documented as of this encounter Miscellaneous Notes * Cerner Conversion Note - Salma Montgomery MD - 10/01/2020 7:06 PM VETERINARY ASSISTANT Patient: RAYMOND ALFARO III, III Age: 65 years Sex: Male : 1955 Associated Diagnoses: None Author: KIMBERLY GONSALVES II, MD-ANS Procedure: Medial Branch Block at L4, L5 and Sacral Ala bilaterally for a total of 6 injection sites. Pre-Procedure Diagnosis: Low back pain secondary to Lumbar Spondylosis Lumbar Facet Disease Post-Procedure Diagnosis: Same Anesthesia: Local (1% Lidocaine) only Complications: none Fluoroscopy: .35 Descriptions of Procedure: Risk and benefits were [...] condition Electronically signed by Christine Burns Conversion Networks Software Consultant Cerner at 12/21/2022 7:47 AM CDT documented in this encounter Plan of Treatment Not on file documented as of this encounter Visit Diagnoses Not on filedocumented in this encounter
[2025-02-22] MEDS: DOXYCYCLINE HYCL 100 MG TABLET PO (22:13)
[2025-02-22 22:20] VITALS: BP 125/73; PULSE 80; RESP 16; TEMP 36.6; O2SAT 96
--- NOTE | 2025-02-22 22:20 | ED_ITS ---
Discharge Plan Disposition Patient Disposition: Home, Self-Care Condition: Good Prescriptions Prescriptions: New doxycycline hyclate 100 mg tablet 100 mg PO BID 10 Days Qty: 20 0RF No Action tamsulosin 0.4 mg capsule PO Patient Comments: TAKE 1 CAPSULE BY MOUTH EVERY DAY tadalafil 5 mg tablet 5 mg PO DAILY PRN Patient Comments: TAKE 1 TABLET BY MOUTH EVERY DAY esomeprazole magnesium 20 MG capsule,delayed release(DR/EC) 20 mg PO DAILY Referrals Follow up/Referrals: Wilbur Davalos MD [Primary Care Provider, Medical] - See instructions Activity Restrictions/Add. Instructions Additional Instructions/Restrictions: You were evaluated in the emergency department today. As we discussed, your exam is reassuring, but since you are worried about tick bite with possible infection, we are prescribing you doxycycline to be on the safe side. Please follow-up closely with your primary care provider for recheck. Return to the emergency department for new or worsening symptoms. Apply topical Benadryl as needed for itching. Clinical Impressions Clinical Impression: Tick bite Instructions Patient Instructions: DI for Insect Bites and Stings, Protect Yourself from Tickborne Illnesses Print Language Print Language: Cape Verdean Discharge ED Provider: Jacey Benavides General Adult HPI General Chief complaint: Skin/Abscess/Foreign Body Stated complaint: inflammed bite on stomach Time Seen by Provider: 02/22/25 21:38 Mode of Arrival: Ambulatory Source of Information: Patient Description of Symptoms (Recalled from ER Triage Doc. by RN): pt ambulatory to ED with c/o possible tick bite to LLQ of abdomen 2 days ago. area is now red and swollen. History of Present Illness HPI narrative: This patient is a 70-year-old male with a history of hypertension, hypertensive heart disease, hyperlipidemia, CAD, GAMALIEL, GERD presenting to the emergency department for evaluation with concern for insect bite to his lower abdomen. Patient states that he has had it for about 3 days now and scratched what he believes was the ticks had out of the bite. He notes he has been itching since then and his was concern for a target shaped rash at home. No fevers, chills, chest pain, shortness of breath, abdominal pain, body aches, or other concerns noted. Related Data Home Medications ?Medication ?Instructions ?Recorded ?Confirmed esomeprazole magnesium 20 mg 20 mg PO DAILY GERD 09/2601/20/25 capsule,delayed release tadalafil 5 mg tablet 5 mg PO DAILY PRN 12/18/24 0 01/20/25 tamsulosin 0.4 mg capsule mg PO 12/18/24 01/20/25 Previous Rx's ?Medication ?Instructions ?Recorded doxycycline hyclate 100 mg tablet 100 mg PO BID 10 day s #20 tabs 02/22/25 Allergies Allergy/AdvReac Type Severity Reaction Status Date / Time Iodinated Contrast Media AdvReac Severe Verified 01/20/25 08:33 (Iodinated Contrast Media - Oral and) Gadolinium-Containing AdvReac Intermediate Verified 01/20/25 08:33 Contrast Medi PFSH [facility] Disclaimer: The information contained in this section may have been updated after the patien td was seen, as this information can be updated by other users. Medical History Gastroesophageal reflux disease HLD (hyperlipidemia) HHD (hypertensive heart disease) CAD (coronary artery disease) GAMALIEL (obstructive sleep apnea) Dyspnea Chest pain Surgical History History of hernia repair Family History Other Cancer Social History Smoking Status: Never smoker alcohol intake: never substance use type: denies use current occupational status: other Travel in the last 8 weeks?: None household members: spouse housing: house current occupational exposures/hazards: No caffeine: Yes Have you lived/traveled outside US in past 30 days?: No Contact w/someone who lives/traveled outside US past 30 days?: No Exposure to someone with infectious disease in past 14 days?: No Do you have a fever (greater than 100.4 F or 38 C)?: No Have you tested positive for COVID-19?: No Exposed to someone with COVID-19 in past 14 days?: No Do you have a sore throat?: No Do you have a cough?: No Do you have any weakness?: No Do you have any diarrhea?: No Are you experiencing any unusual bleeding?: No Do you have any muscle aches/pain?: No Do you have any abdominal pain?: No Are you experiencing loss of taste or smell?: No Other Medical History Have you received the Flu Vaccine for this season: Yes Have you received the Pneumonia Vaccine: No ROS Obtained: Yes All systems reviewed & no additional complaints except as documented Physical Exam General General appearance: alert and in no apparent distress Head Head exam: atraumatic and normocephalic Eye Eye exam: Present normal appearance, PERRL and EOMI ENT ENT exam: Present normal exam, normal oropharynx, mucous membranes moist and normal external ear exam Neck Neck exam: Present normal inspection, full ROM and trachea midline; Absent tenderness Chest Chest inspection: Present normal inspection and symmetric chest wall rise; Absent tenderness Respiratory Respiratory exam: Present normal lung sounds bilaterally; Absent respiratory distress, wheezes, stridor or accessory muscle use Cardiovascular Cardiovascular exam: Present regular rate and normal rhythm Abdominal Exam Abdominal exam: Present soft; Absent distention, tenderness or guarding Comment: Erythematous raised area with excoriations over top of the lower abdomen on the right lower quadrant. Appears consistent with insect bite. No targetoid lesions suspicious for erythema migrans, no rashes or lesions elsewhere Extremities Exam Extremities exam: Present normal inspection, full ROM and normal capillary refill; Absent tenderness or edema Back Exam Back exam: Present normal inspection and full ROM; Absent tenderness Neurological Exam Neurological exam: Present alert, oriented X3, CN II-XII intact and normal gait; Absent motor sensory deficit Psychiatric Psychiatric exam: Present normal affect and normal mood Skin Skin exam: Present warm and dry Medical Decision Making Medical Records Medical records reviewed: Yes I reviewed the patient's medical records. Screening: Per USPSTF and CDC recommendations, given the prevalence of disease in our region, it is our hospital?s policy to screen for HIV and viral Hepatitis for all patients aged 18 and over and those with ongoing risk factors. Felipe Inquiry Pt receiving controlled substance: No Vital Signs: 02/22/25 21:42 02/22/25 22:20 Temperature 97.9 F 97.9 F Temperature Source Oral Oral Pulse Rate 80 Pulse Rate [Left Radial] 88 Respiratory Rate 16 16 Blood Pressure 125/73 Blood Pressure [Right Arm] 149/77 H Blood Pressure Mean [Right Arm] 101 Blood Pressure Source Automatic Cuff Blood Pressure Source [Right Arm] Automatic Cuff Blood Pressure Position Sitting Blood Pressure Position [Right Arm] Sitting 02 Sat by Pulse Oximetry 96 Oxygen Delivery Method Room Air Room Air Lab Data Lab results reviewed: Yes I reviewed the patient's lab results. Orders (Tests/Meds): ED MEDICATIONS Discontinued Medications Generic Name Dose Route Start Last Admin Trade Name Lexis PRN Reason Stop Dose Admin Doxycycline Hyclate 100 mg 02/22/25 22:07 02/22/25 22:13 Doxycycline Hycl 100 Mg Tablet PO 02/22/25 22:08 100 mg ONCE ONE Administration Medical Decision Narrative: In summary, this patient is a 70-year-old male presenting to the Emergency Department for evaluation of possible insect bite to the lower abdomen that he believes he scratched a tick head out of. He reports multiple recent tick bites. Differential diagnoses considered include but are not limited to insect bite, tick bite, cellulitis, contact dermatitis. Ruling out the most morbid conditions drove assessment. It should be noted patient's history includes hypertension, hypertensive heart disease, hyperlipidemia, CAD, GAMALIEL which may not be at goal therapy. This complicates all aspects of care by increasing patient's risk for morbidity. On exam, the patient is well-appearing. He has a small area of erythema that is raised on his right lower abdomen that he has been scratching that has excoriations. No other skin lesions noted. He notes concern for multiple recent tick bites and thinks that he scratched a tick set out of here. He notes that his saw a target lesion at home, though I do not see this here on exam today. I have a low suspicion for tickborne illness at this time, however after shared decision-making with the patient, will elect to treat with a short course of doxycycline. I feel he is appropriate for discharge home with close follow- up with PCP and instructions for supportive care of insect bite. Strict return precautions given Critical Care Critical Care Time Critical Care Time: No
== END 2025-02-22 22:20 | disposition home or self-care (01) ==
PROVIDERS: Emergency Provider Emergency Medicine; PCP Internal Medicine
DX: S30.861A Insect bite (nonvenomous) of abdominal wall, initial encounter (principal); W57.XXXA Bitten or stung by nonvenomous insect and other nonvenomous arthropods, initial encounter
CPT/HCPCS: 99283

== ENCOUNTER 2025-06-03 09:16 | Outpatient (CLI) | payer MEDICARE, OTHER, SELFPAY ==
--- OUTSIDE RECORDS SUMMARY | 2025-06-03 09:20 | XMS_ITS | Clinical Summary ---
Author Organization [facility] Address [address] [place] [address] Care Team Providers Care Chemical Etch Operator Name Role Phone Wilbur Davalos MD Primary Care Provider [phone] Allergies Active Allergy Reactions Criticality Noted Date Comments Ct Contrast Hives,Other (See Comments) High 04/29/2022 Causes blisters and choking Medications atorvastatin (LIPITOR) 10 MG tablet 1 tablet Every Night. Active esomeprazole (nexIUM) 20 MG capsule Take 1 capsule every day by oral route. Active acetaminophen (TYLENOL) 500 MG tablet Take 1 tablet by mouth As Needed for Mild Pain. Active tamsulosin (FLOMAX) 0.4 MG capsule 24 hr capsule Take 1 capsule by mouth Daily. 09/05/2024 Active tadalafil (CIALIS) 5 MG tablet Take 1 tablet by mouth Daily. 09/01/2024 Active Active Problems Problem Noted Date Diagnosed Date Primary hypertension 09/30/2024 Mixed hyperlipidemia 09/29/2023 Sleep apnea 02/06/2016 Immunizations Immunization Administration Dates Next Due Fluzone High-Dose 65+yrs 07/07/2022 Family History Medical History Relation Name Comments Hypertension Mother Relation Name Status Comments Father Mother Alive Social History Tobacco Use Types Packs/Day Years Used Date Smoking Tobacco: Former Cigarettes Q uit: 1989 Smokeless Tobacco: Never Tobacco Cessation:Counseling Given: Not Answered Alcohol Use Standard Drinks/Week Comments Yes 0 (1 standard drink = 0.6 oz pure alcohol) quit in 1989, but may have a drink rare ocass Sex and Gender Information Value Date Recorded Sex Assigned at Not on file Legal Sex Male 12:35 PM EDT Gender Identity Not on file Sexual Orientation Not on file 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 Not on file Not on file Not on artemio e Last Filed Vital Signs Vital Sign Reading Time Taken Comments Blood Pressure 132/70 09/30/2024 2:35 PM EST Pulse 99 09/30/2024 2:35 PM EST Temperature 36.8 C (98.2 F) 02/06/2016 11:09 AM EDT Respiratory Rate 20 02/06/2016 11:09 AM EDT Oxygen Saturation 99% 09/30/2024 2:35 PM EST Inhaled Oxygen Concentration - - Weight 108 kg (237 lb 12.8 oz) 09/30/2024 2:35 P M EST Height 180.3 cm (5' 11 ) 09/30/2024 2:35 PM EST Body Mass Index 33.17 09/30/2024 2:35 PM EST Plan of Treatment Upcoming Encounters Date Type Department Care Team (Late st Contact Info) Description 10/06/2025 9:15 AM EST Office Visit [facility] [address] [place] [address] Ronan Akers III, MD [address] [place] [address] Health Maintenance Due Date Last Done Comments LIPID PANEL 1955 TDAP/TD VACCINES (1 - Tdap) 1974 COLOGUARD 01/26/2000 COLON CANCER SCREENING 5 YEA R SIGMOIDOSCOPY 01/26/2000 COLONOSCOPY 01/26/2000 COLORECTAL CANCER SCREENING 01/26/2000 CT COLONOGRAPHY 01/26/2000 FECAL OCCULT BLOOD TEST 01/26/2000 FIT Testing (1 year) 01/26/2000 Pneumococcal Vaccine 50+ (1 of 1 - PCV) 2005 ZOSTER VACCINE (1 of 2) 2005 ANNUAL WELLNESS VISIT 06/05/2023 HEPATITIS C SCREENING 06/05/2023 INFLUENZA VACCINE 04/04/2025 08/02/2023, 07/07/2022 COVID-19 Vaccine ( season) 2025 08/15/2023, 07/07/2022, 12/05/2020 AAA SCREEN ONCE Completed 09/21/2022 [place] [address] MEDICARE A & B Member Subscriber Plan / Payer (Ef fective 2020-Present) Name:Raymond Diego III Member ID:[id number] Relation to Subscriber:Self Name:Raymond Diego III Subscriber ID:[id number] Payer ID:[id number] Group ID:Not on file Type:Not on file Address: [address] [place] [id number] [facility] Care Teams Chemical Etch Operator Relationship Specialty Start Date End Date Wilbur Davalos MD [address] [facility] [address] [place] [address] PCP - General 04/24/15
--- OUTSIDE RECORDS SUMMARY | 2025-06-03 09:20 | XMS_ITS | Clinical Summary ---
Author Organization [facility] Address [address] [place] [address] Care Team Providers Care Jig Filler Name Role Phone Wilbur Davalos MD Primary Care Provider [phone] Allergies Active Allergy Reactions Criticality Noted Date [...] (09/21/2022): Added automatically from request for surgery [id number] Family History Medical History Relation Name Comments [...] drink first t abeba in the morning (EYE-COLLECTION MANAGER) to steady your nerves or to get [...] Screening 1955 [facility]-Medicare Annual Wellness (AWV) 1955 [facility]-/Child/Adol SDOH Screenings 1955 [facility]- SDOH Screenings 1973 [facility]-Adult SDOH Screenings 1973 [facility]-DTaP,Tdap,and Td Vaccine s (1 - Tdap) 1974 CT Colonography 01/26/2000 Colonoscopy 01/26/2000 FIT-DNA 01/26/2000 FIT 01/26/2000 FOBT 01/26/2000 Sigmoidoscopy 01/26/2000 [facility]-Colorectal Cancer Screening 01/26/2000 [facility]-Pneumococcal Vaccine: 50 + Years (1 of 1 - PCV) 2005 [facility]-Zoster Vaccines (1 of 2) 2005 [facility]-Depression Screening 12/29/2023 12/28/2022 [id number] Vaccine (3 - season) 2025 07/07/2022, 12/05/2020 [facility]-Influenza Vaccine (#1) 2025 07/07/2022 [facility]-RSV Vaccine: 60+ Years o [...] this topic Medical Devices Implanted Type Area Tax Services Professional Device Identifier Shelf Expiration Date Model / Serial / Lot Mesh Ventralight St Echo 8x10 - [id number] Implanted:Qty: 1 on 11/01/2022 by Ronan Rogel MD at [facility] Right: [id number] 06/01/2023 [id number] / / [id number] Procedures Procedure Name Priority Date/Time Associated Diagnosis Comments POCT GLYCOSYLATED HEMOGLOBIN (HGB A1C) Routine 09/21/2022 1:25 PM EST Personal history of nutritional deficiency from Last 3 Months or Most Recently Relevant to Health Maintenance Results * POCT Glycosylated Hemoglobin (Hgb A1C) (09/21/2022 1:25 PM EST) POCT Hemoglobin A1C 5.8 4.4-6.6 % % [facility] Kit Lot Number [id number] [facility] Kit Expiration Date 12/2024 [facility] Blood Venous blood specimen / Unknown 09/21/2022 1:25 PM EST Ronan Rogel MD POINT OF CARE TEST ENTER/EDIT OR DERABLES Final Result [facility] [address] [place] [address] from Last 3 Months or Most Recently Relevant to Health Maintenance Insurance [place] [id number] [place] [address] Advance Directives * Full Code (Latest Code Status on File) Date Activated Date Inactivated Comments 11/01/2022 5:01 PM 11/05/2022 4:31 PM Question Answer Comments Patient has decision-making capacity? Yes Care Teams Jig Filler Relationship Specialty Start Date End Date Wilbur Davalos MD [address] [facility] [address] [place] [address] PCP - General 04/29/22
--- NOTE | 2025-06-03 09:21 | XR_ITS ---
FINAL REPORT CLINICAL HISTORY: Bursitis left shoulder left shoulder pain x 4 weeks no injury COMPARISON: None FINDINGS: LEFT SHOULDER 3 views of the left shoulder were obtained. There is no acute fracture or dislocation. Minimal hypertrophic changes of the acromioclavicular joint. Soft tissues are unremarkable. IMPRESSION: Minimal degenerative changes without acute bony abnormality. Reviewed, Interpreted and Dictated by Nils Suresh MD Transcribed by Tammy Adame Authenticated and [facility]
== END 2025-06-03 23:59 | disposition home or self-care (01) ==
LOC: RAD 09:17
PROVIDERS: PCP Internal Medicine; Visit Provider Internal Medicine
DX: M75.52 Bursitis of left shoulder (principal); M19.012 Primary osteoarthritis, left shoulder
CPT/HCPCS: 73030

== ENCOUNTER 2025-07-03 10:00 | Outpatient (RCR) | payer MEDICARE, OTHER, SELFPAY | END 2025-07-03 23:59 | disposition home or self-care (01) | LOC: OT 10:00 | PROVIDERS: PCP Internal Medicine; Visit Provider Internal Medicine | DX: M75.52 Bursitis of left shoulder (principal) | CPT/HCPCS: 97014; 97032; 97110; 97140; 97166; 97530; G0283 ==

== ENCOUNTER 2025-07-10 10:00 | Outpatient (RCR) | payer MEDICARE, OTHER, SELFPAY | END 2025-07-10 23:59 | disposition home or self-care (01) | LOC: OT 10:00 | PROVIDERS: PCP Internal Medicine; Visit Provider Internal Medicine | DX: M75.52 Bursitis of left shoulder (principal) | CPT/HCPCS: 97014; 97110; 97140; G0283 ==